=== PATIENT | female | born 1960 | race Caucasian/White ===

== ENCOUNTER 2019-10-15 14:47 | Outpatient (CLI) | payer OTHER, SELFPAY ==
--- NOTE | ~2019-10-15 | DEXA_ITS ---
Bone Density Report Name: Siria Marina Age: 58 Sex: Female Ethnicity: White Date of : 1960 Indication: postmenopausal; height loss; prior fracture; Referring Provider: BRIANNA MURGUIA Study: Bone densitometry was performed. Exam Date: October 15, 2019 Accession number: [id number] Bone Density: Region BMD T-score Z-score Classification AP Spine (L1-L4) 1.191 1.3 2.8 Normal Femoral Neck (Left) 0.820 -0.3 1.1 Normal Total Hip (Left) 1.054 0.9 1.9 Normal Total Hip Bilateral Avg 1.029 0.7 1.7 Normal Femoral Neck (Right) 0.782 -0.6 0.7 Normal Total Hip (Right) 1.004 0.5 1.5 Normal World Health Organization criteria for BMD impression classify patients as: Normal (T-score at or above -1.0), Osteopenia (T-score between -1.0 and -2.5), or Osteoporosis (T-score at or below -2.5). 10-year Fracture Risk: FRAX not reported because: All T-scores for Spine Total, Hip Total, Femoral Neck at or above -1.0 Prior hip or vertebral fracture Clinical Information Provided by Patient: Have had a previous hip or vertebral fracture Has had a low trauma fracture Patient maximum height was 64 Menopause Age: 45 Drinks caffeinated beverages Onset of menses at age 11 Number of children 0 Impression: The patient has normal bone mass. The patient has risk factors, including: previous fracture. Discussion: INCREASED RISK OF FRACTURE DUE TO HISTORY OF FRACTURE. The patient's previous fracture puts the patient at high risk of a future fracture. In untreated patients, the risk of osteoporotic fracture increases approximately two-fold for each 1.0 SD decrease in T-score. Low bone density is not the only risk factor for fracture; also consider factors such as patient's age, frailty or poor health, risk of falling, risk of injury, previous osteoporotic fracture, family history of osteoporosis, cigarette smoking, low body weight, etc. Not everyone with a low trauma fracture has osteoporosis; osteomalacia and other metabolic bone disorders should also be considered. Patients who have osteoporosis should be evaluated for specific diseases and conditions (secondary causes) that may cause or contribute to bone loss and fracture risk. National Osteoporosis Foundation (NOF) recommends pharmacologic intervention for patients with a prior hip or vertebral fracture regardless of BMD T-score. The patient should follow a healthful lifestyle (good nutrition with adequate calcium and vitamin D, and appropriate weight-bearing exercise). Follow-Up: Consider a repeat BMD and Vertebral Fracture Assessment (VFA) exam in 2 years or sooner if medically necessary, to reassess this patient's status. Reported by: DO on 10/15/2019 3:16:00 PM. Reviewed, dictated and finalized at location AGavin MARIN
== END 2019-10-15 14:48 | disposition home or self-care (01) ==
LOC: ANHIMG 14:49
PROVIDERS: PCP Family Medicine; Visit Provider Family Medicine
DX: Z13.820 Encounter for screening for osteoporosis (principal); Z78.0 Asymptomatic menopausal state
CPT/HCPCS: 77080

== ENCOUNTER 2019-11-17 11:27 | Emergency (ER) | payer OTHER, SELFPAY ==
[2019-11-17 11:33] VITALS: BP 149/97; PULSE 101; RESP 16; TEMP 36.5; O2SAT 100
--- NOTE | 2019-11-17 11:57 | ED.URI ---
HPI - URI/Sore Throat General Chief Complaint: Upper Respiratory Infection Stated Complaint: ear pain/sore throat Time Seen by Provider: 11/17/19 11:37 Source: patient and RN notes reviewed History of Present Illness HPI Narrative: Patient presents today complaining of a 2-day history of sore throat and left ear pain. Denies any additional symptoms to include fever and cough. She has an appointment set up with her PCP tomorrow, but could not wait due to pain. Currently rates her pain 08/27. She has been taking Aleve cold and sinus and ibuprofen. MD elicited complaint: sore throat Related Data Allergies Allergy/AdvReac Type Severity Reaction Status Date / Time iohexol Allergy Severe Rash Verified 09/25/19 17:32 [From CONTRAST - CT, XRAY] iodine Allergy Unknown Skin Verified 09/25/19 17:32 irritation Contrast Media Allergy Severe RASH Uncoded 09/25/19 17:32 Review of Systems Review of Systems: Narrative: CONSTITUTIONAL: Denies body aches, fever, chills, or sweats. EYES: Denies visual changes, redness, or discharge. ENT: Denies rhinorrhea, congestion. + Left ear pain, sore throat CARDIOVASCULAR: Denies chest pain, palpitations, or edema. RESPIRATORY: Denies cough or dyspnea. GASTROINTESTINAL: Denies abdominal pain, nausea, vomiting, or diarrhea. GENITOURINARY: Denies dysuria or hematuria. SKIN: Denies rash, itching, or wounds. MUSCULOSKELETAL: Denies back pain, joint pain, or myalgia. NEUROLOGIC: Denies headache, numbness, tingling, or weakness. PSYCH: Denies depression or anxiety. [facility] Past Medical History Medical History (Updated 11/17/19 @ 12:09 by Aide Camacho, [facility]) Body mass index (BMI) 40.0-44.9, adult (12/03/18) Current moderate episode of major depressive disorder without prior episode Depression Essential hypertension Gastroesophageal reflux disease without esophagitis Insomnia Mild intermittent asthma without complication Mixed hyperlipidemia Osteoarthrosis, unspecified whether generalized or localized, forearm Stress Social History Social History Smoking status: Never smoker Second hand tobacco smoke exposure: No Alcohol intake: current Comments At time of signature, I have reviewed and agree with nursing past medical, surgical, social and family history unless otherwise noted. Please see nursing chart for further information. There is no relevant family history pertinent to the presenting complaint Exam Narrative: Exam Narrative: GENERAL: Well-appearing, well-nourished, and in no acute distress. HEAD: Normocephalic, atraumatic. EYES: EOMI. No redness or drainage. Conjunctivae normal. ENT: Mucous membranes pink and moist. Nares clear. No rhinorrhea. Right-sided middle ear effusion without evidence of infection. Small amount of fluid behind the left eardrum without evidence of infection. Throat is moderately erythematous and edematous. Tonsils 3+ with white exudate. Uvula midline. NECK: Normal AROM. Supple. Bilateral anterior cervical chain lymphadenopathy. CHEST: No respiratory distress. Clear to auscultation. HEART: Regular rate and rhythm. No murmur appreciated. Normal peripheral pulses. EXTREMITIES: Normal range of motion. No edema. SKIN: Warm, dry, no rash. Capillary refill normal. Normal skin turgor. NEURO: No focal deficits. Alert and oriented x3. Gait steady. PSYCH: Normal affect. No signs of depression or anxiety. Course Vital Signs Vital signs: Vital Signs Temperature 97.7 F 11/17/19 11:33 Pulse Rate 101 H 11/17/19 11:33 Respiratory Rate 16 11/17/19 11:33 Blood Pressure 149/97 H 11/17/19 11:33 Pulse Oximetry 100 11/17/19 11:33 Temperature 97.7 F 11/17/19 11:33 Pulse Rate 101 H 11/17/19 11:33 Respiratory Rate 16 11/17/19 11:33 Blood Pressure 149/97 H 11/17/19 11:33 Pulse Oximetry 100 11/17/19 11:33 Reviewed. Pt has been instructed to follow up with her PCP regarding
== END 2019-11-17 12:17 | disposition home or self-care (01) ==
PROVIDERS: Emergency Provider Nurse Practitioner; PCP Family Medicine
DX: J02.8 Acute pharyngitis due to other specified organisms (principal); I10 Essential (primary) hypertension; K21.9 Gastro-esophageal reflux disease without esophagitis; E78.5 Hyperlipidemia, unspecified; M19.90 Unspecified osteoarthritis, unspecified site
CPT/HCPCS: 87081; 87880; 99213; G0463

== ENCOUNTER 2019-11-23 00:54 | Outpatient (CLI) | payer OTHER, SELFPAY ==
[2019-11-23 18:12] LABS: SARS-CoV-2 RNA PCR Negative
== END 2019-11-23 00:55 | disposition home or self-care (01) ==
LOC: ANHCOVIDDT 00:54
PROVIDERS: PCP Family Medicine; Visit Provider Internal Medicine Gastroenterology
DX: Z01.812 Encounter for preprocedural laboratory examination (principal); Z20.828 Contact with and (suspected) exposure to other viral communicable diseases
CPT/HCPCS: 87635; C9803; U0003

== ENCOUNTER 2019-12-26 01:32 | Outpatient (CLI) | payer OTHER, SELFPAY ==
[2019-12-26 18:04] LABS: SARS-CoV-2 RNA PCR Negative
== END 2019-12-26 01:33 | disposition home or self-care (01) ==
LOC: ANHCOVIDDT 01:32
PROVIDERS: PCP Family Medicine; Visit Provider Internal Medicine Gastroenterology
DX: Z01.812 Encounter for preprocedural laboratory examination (principal); Z20.828 Contact with and (suspected) exposure to other viral communicable diseases
CPT/HCPCS: 87635; C9803; U0003

== ENCOUNTER 2019-12-30 00:37 | Day surgery (SDC) | payer OTHER, SELFPAY ==
[2019-11-18 15:32] VITALS: BMI 43.0
[2019-12-23 14:58] VITALS: BMI 41.8
[2019-12-30 07:54] VITALS: BP 143/102; PULSE 94; RESP 19; TEMP 36.3; O2SAT 99; BMI 42.1
[2019-12-30] MEDS: LACTATED RINGERS 1,000 ML 150 ML IV CONT (08:04)
--- NOTE | 2019-12-30 08:22 | WPDGICN ---
Assessment and Plan Assessment and plan (1) ONI (iron deficiency anemia): Code(s): D50.9 - Iron deficiency anemia, unspecified Status: Acute Assessment and Plan: Patient has iron deficiency anemia. Plan is for GI endoscopy to evaluate for causes of this. She does have acid reflux and we will need to exclude esophagitis. She is chronically on proton pump inhibitors and potentially this could also contribute to iron malabsorption. Further recommendations will be given after endoscopy. Iron replacement suggested after endoscopy as well. (2) GERD (gastroesophageal reflux disease): Code(s): K21.9 - Gastro-esophageal reflux disease without esophagitis Status: Acute Assessment and Plan: Patient has chronic acid reflux for which she has on Nexium chronically. This will be assessed at time of endoscopy. (3) Encounter for screening colonoscopy: Code(s): Z12.11 - Encounter for screening for malignant neoplasm of colon Status: Acute Assessment and Plan: Patient's last colonoscopy was 10 years ago. Time for a screening colonoscopy at this time in addition to assessing for iron loss. GI Consult Note Consult date/time: 12/30/19 08:22 HPI: Siria Marina is a 59 year old female Seen in evaluation at the request of Dr. Serena mccollum. Patient was found to have iron deficiency anemia. She denies abdominal pain. Has had no obvious bleeding. Her bowel habits are normal. Her weight has remained stable. She has occasionally had heartburn in the past for which she is on Nexium for many years. Last colonoscopy was 10 years ago. Patient states she was recently treated for tonsillitis with antibiotics. Family history is noncontributory. Review of Systems Review of Systems: All systems reviewed & are unremarkable except as noted in HPI and below PMFSH Past Medical History Medical History (Updated 12/30/19 @ 08:24 by Jose Pickard MD) Body mass index (BMI) 40.0-44.9, adult (12/03/18) Current moderate episode of major depressive disorder without prior episode Depression Essential hypertension Gastroesophageal reflux disease without esophagitis Insomnia Mild intermittent asthma without complication Mixed hyperlipidemia Osteoarthrosis, unspecified whether generalized or localized, forearm Stress Family History Family History Father Hypertension Family history of cardiovascular disease Other Family history of elevated blood lipids Family history of kidney disease Social History Social History (Reviewed 11/23/19 @ 10:14 by Fouzia Mckeon [facility]) Smoking status: Never smoker Second hand tobacco smoke exposure: No Alcohol intake: never Substance use: never Substance use type: does not use Living arrangements: with family Gender identity (if verbalized by the patient): Female Sexual Orientation (if Verbalized by the Patient): Straight or Heterosexual Spiritual care concerns: No Meds Home Medications and Allergies Home Medications Medication Instructions Recorded Confirmed Type beclomethasone dipropionate 80 2 inhalation INHALATION Q12H #10.6 05/29/19 12/30/19 Rx mcg/actuation HFA breath activated gm aerosol lisinopril 40 mg tablet 40 mg PO DAILY #30 tablet 09/07/19 12/30/19 Rx hydrochlorothiazide 12.5 mg tablet 12.5 mg PO DAILY #90 tablet 10/28/19 12/30/19 Rx clonazepam 1 mg tablet 1 mg PO BID PRN #60 tablet 11/09/19 12/30/19 Rx esomeprazole magnesium [Nexium] 20 mg PO DAILY 11/18/19 12/30/19 History gabapentin 300 mg PO DAILY 12/23/19 12/30/19 History rmqjlzzy-tqr-iosi-FA-lutein 1 tablet PO DAILY 12/23/19 12/30/19 History [Centrum Silver Women] Allergies Allergy/AdvReac Type Severity Reaction Status Date / Time iohexol Allergy Severe Rash Verified 12/30/19 07:51 [From CONTRAST - CT, XRAY] iodine Allergy Unknown Skin Verified 12/30/19 07:51 irritation
--- NOTE | 2019-12-30 08:42 | WPDANESEPPF ---
Anes - Initial Pre Proc Eval Procedure: Operation Date: 12/30/19 09:00 Proposed Procedures p Esophagogastroduodenoscopy & Colonoscopy - Jose Pickard MD Date/Time: 12/30/19 08:42 Surgeon: Jose Pickard MD Pre Op Diagnosis: iron deficiency anemia, GERD Patient Data Age: 59 Gender: F Height: 5 ft 3 in Weight: 107.9 kg Last Vital Signs Temp 36.3 C L 12/30/19 07:54 Pulse 94 12/30/19 07:54 Resp 19 12/30/19 07:54 BP 143/102 H 12/30/19 07:54 Pulse Ox 99 12/30/19 07:54 Allergies Allergy/AdvReac Type Severity Reaction Status Date / Time iohexol Allergy Severe Rash Verified 12/30/19 07:51 [From CONTRAST - CT, XRAY] iodine Allergy Unknown Skin Verified 12/30/19 07:51 irritation Contrast Media Allergy Unknown RASH Uncoded 12/30/19 07:51 Home Medications Medication Instructions Recorded Confirmed Type beclomethasone dipropionate 80 2 inhalation INHALATION Q12H #10.6 05/29/19 12/30/19 Rx mcg/actuation HFA breath activated gm aerosol lisinopril 40 mg tablet 40 mg PO DAILY #30 tablet 09/07/19 12/30/19 Rx hydrochlorothiazide 12.5 mg tablet 12.5 mg PO DAILY #90 tablet 10/28/19 12/30/19 Rx clonazepam 1 mg tablet 1 mg PO BID PRN #60 tablet 11/09/19 12/30/19 Rx esomeprazole magnesium [Nexium] 20 mg PO DAILY 11/18/19 12/30/19 History gabapentin 300 mg PO DAILY 12/23/19 12/30/19 History dzbighet-fil-jqvm-FA-lutein 1 tablet PO DAILY 12/23/19 12/30/19 History [Centrum Silver Women] Patient hx anesthesia problems: none Family hx anesthesia problems: none PMFSH Past Medical History Medical History Body mass index (BMI) 40.0-44.9, adult (12/03/18) Current moderate episode of major depressive disorder without prior episode Depression Essential hypertension Gastroesophageal reflux disease without esophagitis Insomnia Mild intermittent asthma without complication Mixed hyperlipidemia Osteoarthrosis, unspecified whether generalized or localized, forearm Stress Family History Family History Father Hypertension Family history of cardiovascular disease Other Family history of elevated blood lipids Family history of kidney disease Social History Social History Smoking status: Never smoker Second hand tobacco smoke exposure: No Alcohol intake: never Substance use: never Substance use type: does not use Living arrangements: with family Gender identity (if verbalized by the patient): Female Sexual Orientation (if Verbalized by the Patient): Straight or Heterosexual Spiritual care concerns: No Anes - Eval Final PreProcedure Day of Procedure 12/30/19 08:42 Patient weight: morbidly obese Heart: regular rate and rhythm Lungs: clear to auscultation Airway: Mallampati scale class II Neurological: alert and oriented Last oral intake: >/= 8 hours ASA classification: III Emergent: no Anesthetic plan: proceed Anesthesia type and monitoring: general GIVS and standard monitoring Informed Consent: The patient's anesthetic plan and its attendant risks and benefits were discussed with the patient/family/POA. Questions were solicited and answers provided to the satisfaction of the patient/family/POA.
[2019-12-30] MEDS: BENZOCAINE (*SP) 60 ML SPRAY CAN (HURRICAINE) 1 SPRAY MUCOUS MEM (09:07)
[2019-12-30 09:30] VITALS: BP 137/84; PULSE 88; RESP 23; O2SAT 98
[2019-12-30 09:40] VITALS: BP 136/88; PULSE 78; RESP 17; O2SAT 97
[2019-12-30 09:50] VITALS: BP 136/86; PULSE 80; RESP 19; O2SAT 97
== END 2019-12-30 10:07 | disposition home or self-care (01) ==
PROVIDERS: PCP Family Medicine; Visit Provider Internal Medicine Gastroenterology
PROC: 0DJ08ZZ Inspection of Upper Intestinal Tract, Via Natural or Artificial Opening Endoscopic (ICD-10-PCS; CPT 43235; principal; 2019-12-30 09:00)
DX: Z12.11 Encounter for screening for malignant neoplasm of colon (principal); D50.9 Iron deficiency anemia, unspecified; Q39.4 Esophageal web; K21.9 Gastro-esophageal reflux disease without esophagitis; I10 Essential (primary) hypertension; J45.909 Unspecified asthma, uncomplicated; E78.5 Hyperlipidemia, unspecified; M19.90 Unspecified osteoarthritis, unspecified site; G47.00 Insomnia, unspecified; F32.9 Major depressive disorder, single episode, unspecified
CPT/HCPCS: 43450; G0105; J2001; J2704; J7120

== ENCOUNTER 2020-07-21 15:45 | Outpatient (CLI) | payer BC, SELFPAY ==
--- NOTE | ~2020-07-21 | MM_ITS ---
EXAMINATION: MM screening desiree BI w deanna HISTORY: Screening TECHNIQUE: Craniocaudal and mediolateral oblique 3-D tomosynthesis images were obtained and synthetic 2-D images were generated. CAD analysis was submitted and interpreted. COMPARISON: No prior mammogram is available for comparison at this institution. BREAST PARENCHYMAL COMPOSITION: There are scattered areas of fibroglandular density. FINDINGS: There are scattered asymmetries in the right breast. There is a benign-appearing right demetrius st mass containing dystrophic calcifications. There is a mass in the upper outer quadrant of the left breast, middle third measuring approximately 8 mm. IMPRESSION: 1. Right breast asymmetries and left breast mass. 2. Additional mammographic views and possible breast ultrasound are recommended. BI-RADS Category 0: Incomplete: Needs additional imaging evaluation. Reviewed, dictated and finalized at location A. IMPRESSION: 1. Right breast asymmetries and left breast mass. 2. Additional mammographic views and possible breast ultrasound are recommended . BI-RADS Category 0: Incomplete: Needs additional imaging evaluation.
== END 2020-07-21 15:46 | disposition home or self-care (01) ==
PROVIDERS: PCP Family Medicine; Visit Provider Family Medicine
DX: Z12.31 Encounter for screening mammogram for malignant neoplasm of breast (principal); R92.8 Other abnormal and inconclusive findings on diagnostic imaging of breast
CPT/HCPCS: 77063; 77067

== ENCOUNTER 2021-09-06 09:03 | Outpatient (CLI) | payer BC, SELFPAY ==
--- NOTE | ~2021-09-06 | MM_ITS ---
EXAMINATION: MM screening desiree BI w deanna HISTORY: Screening TECHNIQUE: Craniocaudal and mediolateral oblique 3-D tomosynthesis images were obtained and synthetic 2-D images were generated. CAD analysis was submitted and interpreted. COMPARISON: Comparison to multiple prior studies sequentially, with oldest reviewed study dated 05/2017. BREAST PARENCHYMAL COMPOSITION: Breast composed of scattered areas of fibroglandular density FINDINGS: Bilateral breast asymmetries and calcifications are not significantly changed. There is no evidence of suspicious mass, calcification, or architectural distortion to suggest malignancy in eith er breast. There has been no suspicious interval change. IMPRESSION: 1. No mammographic evidence of malignancy. 2. Recommend routine screening mammography in one year. BI-RADS Category 2: Benign finding(s). Reviewed, dictated and finalized at location L.
== END 2021-09-06 09:04 | disposition home or self-care (01) ==
LOC: ANHIMG 09:04
PROVIDERS: PCP Family Medicine; Visit Provider Physician Assistant
DX: Z12.31 Encounter for screening mammogram for malignant neoplasm of breast (principal)
CPT/HCPCS: 77063; 77067

== ENCOUNTER 2022-11-19 07:48 | Outpatient (CLI) | payer BC, SELFPAY ==
--- NOTE | ~2022-11-19 | MM_ITS ---
EXAMINATION: MM screening desiree BI w deanna HISTORY: Screening mammogram TECHNIQUE: Craniocaudal and mediolateral oblique 3-D tomosynthesis images were obtained and synthetic 2-D images were generated. CAD analysis was submitted and interpreted. COMPARISON: 09/06/2021, 07/21/2020 BREAST PARENCHYMAL COMPOSITION: There are scattered areas of fibroglandular density. FINDINGS: No suspicious mass, calcification, or architectural distortion are identified in either kelvin ast to suggest malignancy. There has been no suspicious interval change. IMPRESSION: 1. No mammographic evidence of malignancy. 2. Recommend routine screening mammography in one year. BI-RADS Category 1: Negative Reviewed, dictated and finalized at location A.
== END 2022-11-19 07:49 | disposition home or self-care (01) ==
LOC: ANHIMG 07:50
PROVIDERS: PCP Family Medicine; Visit Provider Family Medicine
DX: Z12.31 Encounter for screening mammogram for malignant neoplasm of breast (principal)
CPT/HCPCS: 77063; 77067

== ENCOUNTER 2023-11-28 10:12 | Outpatient (CLI) | payer MEDICARE, OTHER, SELFPAY ==
--- NOTE | ~2023-11-28 | MM_ITS ---
EXAMINATION: MM screening desiree BI w deanna HISTORY: Screening TECHNIQUE: Craniocaudal and mediolateral oblique 3-D tomosynthesis images were obtained and synthetic 2-D images were generated. CAD analysis was submitted and interpreted. COMPARISON: Comparison to multiple prior studies sequentially, with oldest reviewed study dated 05/2017. BREAST PARENCHYMAL COMPOSITION: Not dense: There are scattered areas of fibroglandular density. FINDINGS: There is no evidence of suspicious mass, calcification, or architectural distortion to sugg est malignancy in either breast. There has been no suspicious interval change. IMPRESSION: 1. No mammographic evidence of malignancy. 2. Recommend routine screening mammography in one year. BI-RADS Category 1: Negative Reviewed, dictated and finalized at location B.
== END 2023-11-28 10:13 | disposition home or self-care (01) ==
PROVIDERS: PCP Family Medicine; Visit Provider Family Medicine
DX: Z12.31 Encounter for screening mammogram for malignant neoplasm of breast (principal)
CPT/HCPCS: 77063; 77067

== ENCOUNTER 2024-02-07 13:33 | Outpatient (CLI) | payer MEDICARE, OTHER, SELFPAY ==
--- NOTE | ~2024-02-07 | XR_ITS ---
AP view of the pelvis and AP and lateral views of the left hip Clinical history: Pain Findings: No acute fracture or dislocation is seen. Osseous alignment is anatomic. There is moderate to advanced degenerative changes left hip joint, especially superiorly. There is mild degenerative ch julia of the right hip joint. There is degenerative spondylosis in the visualized lower lumbar spine. Soft tissues are unremarkable. Impression: Moderate to advanced degenerative change of the left hip joint. Mild right hip joint degenerative change. Degenerative spondylosis of the lower lumbar spine. Reviewed, dictated and finalized at location M. LIBRARY DIRECT[employer] Impression: Moderate to advanced degenerative change of the left hip joint. Mild right hip joint degenerative change. Degenerative spondylosis of the lower lumbar spine.
== END 2024-02-07 13:34 | disposition home or self-care (01) ==
PROVIDERS: PCP Family Medicine; Visit Provider Student in an Organized Health Care Education/Training Program
DX: M16.12 Unilateral primary osteoarthritis, left hip (principal); M16.11 Unilateral primary osteoarthritis, right hip; M47.816 Spondylosis without myelopathy or radiculopathy, lumbar region
CPT/HCPCS: 73502

== ENCOUNTER 2024-04-21 11:28 | Outpatient (CLI) | payer MEDICARE, OTHER, SELFPAY | END 2024-04-21 11:29 | disposition home or self-care (01) | LOC: ANHIMG 11:29 | PROVIDERS: PCP Family Medicine; Visit Provider Family Medicine | DX: M85.851 Other specified disorders of bone density and structure, right thigh (principal); Z78.0 Asymptomatic menopausal state | CPT/HCPCS: 77080 ==

== ENCOUNTER 2024-06-25 08:24 | Outpatient (CLI) | payer MEDICARE, OTHER, SELFPAY ==
--- NOTE | ~2024-06-25 | CT_ITS ---
Procedure: CT hip LT wo con Ordering provider: Fabio Santizo MD History: . Preoperative planning . Comparison: None. Technique: Thin slice axial CT of the No IV contrast was given. Sagittal and coronal reformatted imag es were also obtained and reviewed. Radiation reduction technique utilized.The dose-length product wa s 11/04/2023 mGy-cm. Findings: BONES: No fracture is seen. JOINT SPACES: Bilateral severe osteoarthritic changes more on the left side. Severe osteoarthritic ch anges of the right knee. Bilateral osteoarthritic changes of the patellofemoral joints. SOFT TISSUES: IMPRESSION: Bilateral hip severe osteoarthritic changes more on the left side. No acute osseous abnormality. Severe osteoarthritic changes in the right kidney. Reviewed, dictated and finalized at location A.
--- OUTSIDE RECORDS SUMMARY | 2024-06-25 08:29 | XMS_ITS | Clinical Summary ---
Author Organization [facility] Address [address] [place] [address] Care Team Providers Care Lead Java Software Engineer Name Role Phone Serena Caceres MD Primary Care Provider [phone] Source Comments [facility],non-owned Affiliates and Associated Physician Practices is amultiple site organization consisting of ambulatory clinics and hospital sitesin [place], [place], [place] and [place]. This disclosure is being madepursuant to the Care Everywhere program and may not contain all information available regarding this patient. Last updated 17.[facility] Combat Stroke Allergies Active Allergy Reactions Criticality Noted Date Comments Contrast-Iodinated Agents For Ct/Other Urticaria 05/21/2012 Medications * Be aware that medications may not be up to date on this document. Alwaysverify current medications with the patient. lisinopril (PRINIVIL; ZESTRIL) 20 MG tablet Take 20 mg by mouth once daily. Active hydrochlorothia zide (MICROZIDE) 12.5 MG capsule Take 12.5 mg by mouth once daily. Active Esomeprazole Magnesium (NEXIUM PO) Active lutein 10 MG tablet Take 10 mg by mouth once daily Active Multiple Vitamins TABS Active Madison-3 Fatty Acids (OMEGA 3 PO) Active HYDROcodone-nano taminophen (NORCO) 5-325 MG tablet TK 1 T PO Q 6 H PRN P 0 8 Active diazePAM (VALIUM) 10 MG tablet TK 1 T PO 30 MIN PRIOR TO APPOINTMENT. MAY REPEAT AT TIME OF APPOINTMENT IF NEEDED 0 8 Active cephalexin (KEFLEX) 500 MG capsule TK 4 CS PO 1 HOUR PRIOR TO PROCEDURE 0 8 Active Active Problems No known active problems Family History Medical History Relation Name Comments Heart Disease Father stent placed 2 012 Hypercholesterolemia Father Hypertension Father Heart Disease Maternal Grandmother Thyroid Disease Mother Cancer Paternal Grandmother Cervica l Hypertension Paternal Grandmother Relation Name Status Comments Father Alive Maternal Grandfather Maternal Grandmother Mother Alive Paternal Grandfather Paternal Grandmother Sister 1 Alive Sister 2 Alive Social History Tobacco Use Types Packs/Day Years Used Date Smoking Tobacco: Never Smokeless Tobacco: Never Alcohol Use Standard Drinks/Week Comments Yes 0 (1 standard drink = 0.6 oz pur e alcohol) social Comments No Sex and Gender Information Value Date Recorded Sex Assigned at Not on file 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 Gender Identity Not on file Sexual Orientation Not on file Last Filed Vital Signs Vital Sign Reading Time Taken Comments Blood Pressure 122/88 11/08/2017 1:17 PM CDT Pulse 71 05/21/2012 1:27 PM CDT Temperature - - Respiratory Rate - - Oxygen Saturation - - Inhaled Oxygen Concentration - - Weight 106.9 kg (235 lb 9.6 oz) 11/08/2017 1:17 PM CDT Height 162.6 cm (5' 4 ) 11/08/2017 1:17 PM CDT Body Mass Index 40.44 11/08/2017 1:17 PM CDT Plan of Treatment Health Maintenance Due Date Last Done Comments BONE DENSITY TESTING 1960 COLOGUARD (AGES 45-75) - COLON CA SCREENING 1958 COLON MONITORING 1958 COLONOSCOPY - COLON CA SCREENING 1958 CT COLONOGRAPHY - COLON CA SCREENING 1960 Colorectal Cancer Screening 1960 FIT - COLON CA SCREENING 1958 FLEX SIG - COLON CA SCREENING 1958 LIPID TESTING 1958 HIV SCREENING 1973 HEPATITIS C SCREENING 10/24/1976 DTAP/TDAP/TD VACCINES (1 - Tdap) 1977 PNEUMOCOCCAL VACCINE 50+ (1 of 1 - PCV) 2008 ZOSTER VACCINE (1 of 2) 2008 SCREENING FOR DIABETES 11/08/2017 PAP with HPV 11/07/2020 11/08/2015, 05/21/2012 MAMMOGRAM 12/12/2020 12/12/2018, 1005/2017, 11/21/2016, Additional history exists COVID-19 VACCINE (2023- season) 2023 DEPRESSION SCREENING 02/19/2024 INFLUENZA VACCINE (Season Ended) 2024 Respiratory Syncytial Virus (RSV) Vaccine Pt: or over 60 yrs (1 - 1-dose 75+ series) 2033 HEPATITIS B VACCINE Aged Out No longe r eligible based on patient's age to complete this topic HIB VACCINE Aged Out No longer eligi ble based on patient's age to complete this topic HPV VACCINE Aged Out No longer eligi ble based on patient's age to complete this topic MENINGOCOCCAL (Group B) VACCINE SHARED DECISION-MAKING Aged Out No longer eligible based on patient's age to complete this topic MENINGOCOCCAL GROUPS A/C/Y/W VACCINE Aged Out No longer eligible based on patient's age to complete this topic Procedures Procedure Name Priority Date/Time Associated Diagnosis Comments MAMMO BILAT SCREENING Routine 12/12/2018 1:29 PM CDT Screening for breast cancer PAP W WINSOME HPV HR+HPV 16/18 Routine 11/08/2015 1:58 PM CDT Well female exam with routine gynecological exam Special screening examination for human papillomavirus (HPV) from Last 3 Months or Most Recently Relevant to Health Maintenance Results * MAMMO SCREENING DIGITAL IMAGE BILAT G0202 (12/12/2018 1:29 PM CDT) Anatomical Region Laterality Modality Breast Bilateral Mammography 12/12/2018 1:53 PM CDT Impressions 12/12/2018 1:55 PM CDT No mammographic evidence of malignancy in either breast. ASSESSMENT: BIRADS Category 2: Benign finding(s). RECOMMENDATION: Bilateral screening mammogram in one year. Thank you for allowing us to participate in the care of your patient. [facility] Breast Care utilizes 9+ as a reminder system to notify patients of their next recommended mammogram. Reading Radiologist: Bonita Lagos MD on 12/12/2018 at 1:55 PM Narrative 12/12/2018 1:55 PM CDT EXAMINATION: Digital screening mammogram on 12/12/2018. Low-dose full-field digital breast tomosynthesis examination was performed with synthetic 2D images and 3D acquisitions. Computer assisted detection was utilized. PRIOR: Multiple prior mammograms, most recently 11/21/2017 and dating back to 11/11/2015. BREAST PARENCHYMAL DENSITY: There are scattered areas of fibroglandular density. RISK ASSESSMENT CALCULATION: Based on the information provided by your patient, her lifetime risk of breast cancer is average (<15%). Additional quantitative risk model data and patient history details have been scanned as a document/letter in Epic electronic medical record (media tab). Please note this information is only as accurate as the data entered by the patient. FINDINGS: No suspicious masses, areas of architectural distortion or microcalcifications are evident on synthetic 2D mammogram or tomosynthesis images. There has been no significant interval change since the prior examination. Masses in both breasts are unchanged. us Serena Caceres MD MAMMO ORDERABLES Final Result * PAP W WINSOME HPV HR+HPV 16/18 (PO REF LAB) (11/08/2015 1:58 PM CDT) Diagnosis [facility] INSURANCE BILL Comment: NEGATIVE FOR INTRAEPITHELIAL LESION AND MALIGNANCY. CELLULAR CHANGES ASSOCIATED WITH ATROPHY ARE PRESENT. Specimen Adequacy [facility] INSURANCE BILL Comment: Satisfactory for evaluation. Endocervical and/or squamous metaplastic cells (endocervical component) are present. Clinician Provided ICD10 [facility] INSURANCE BILL Comment: Z01.419 Z11.51 Z12.39 Performed by [facility] INSURANCE BILL Comment:Payton Cho, Cyto technologist (ASCP) Comment . [facility] INSURANCE BILL Note [facility] INSURANCE BILL Comment: The Pap smear is a screening test designed to aid in the detection of premalignant and malignant conditions of the uterine cervix. It is not a diagnostic procedure and should not be used as the sole means of detecting cervical cancer. Both false-positive and false-negative reports do occur. . [facility] CPT Code Automation [facility] INSURANCE BILL Comment: This liquid based ThinPrep(R) pap test was screened with the use of an image guided system. Human papillomavirus Other hr types Negative Negative [facility] INSURANCE BILL Human papillomavirus 16 Negative Negative [facility] INSURANCE BILL Human papillomavirus 18 Negative Negative [facility] INSURANCE BILL Comment: This test detects fourteen high-risk HPV types: HPV16, HPV18 and twelve other high-risk types (31, 33, 35, 39, 45, 51, 52, 56, 58, 59, 66, 68) without differentiation. MICROSCOPIC CYTOLOGIC EXAMINATION OF SMEAR OF SPECIMEN FROM FEMALE GENITAL TRACT PREPARED USING PAPANICOLAOU TECHNIQUE / Unknown 11/08/2015 1:58 PM CDT 11/09/2015 2:35 AM CDT Narrative [facility] INSURANCE BILL - 11/11/2015 1:12 PM CDT No. of containers..01 CYTYC Thin Prep Vial Resulting Agency Comment [facility] [place] [address] W [phone] us Jade Sprague MD LAB - PATHOLOGY/CYTOLOGY AMANDEEP MATHIAS Final Result [facility] INSURANCE BILL [address] [place] [address] from Last 3 Months or Most Recently Relevant to Health Maintenance Insurance [facility] Care Teams Lead Java Software Engineer Relationship Specialty Start Date End Date Serena Caceres MD [address] [place] [address] PCP - General Family Medicine 11/08/17
--- OUTSIDE RECORDS SUMMARY | 2024-06-25 08:29 | XMS_ITS | Data Portability ---
Author Organization [facility] Cigital [facility], [facility] Address [address] [address] Assessment Encounter Date Assessment Date Assessment LastModified by Organization Details LastModified Time 11/06/2023 11/06/2023 63 y/o F here for a group medical visit focusing on optimizing BMAC procedure for the right knee. Preprocedural screening labs were reviewed and discussed with patient, and post-procedure plan was discussed in detail. Recommend vitamin D 50,000 IU/week x12 weeks and recheck. Additionally, feel patient would benefit from attending health optimization program. She was given information regarding same. All questions answered. May follow up if she wishes to pursue health optimization. Return to clinic sooner for worsening symptoms. Greater than 20 minutes was spent with the patient in direct evaluation and subsequent care planning. Note: billing done solely on interaction of patient with JENNIE [email or web address] Not available 11/12/2023 14:54:46 Plan of Treatment Reminders Order Date Submit Date Provider Last Modified By Organization Details Last Modified Time Details Appointments None recorded. Lab None recorded. Referral None recorded. Procedures None recorded. Surgeries None recorded. Imaging XR, knee - RM 5 2023 024 [email or web address] Not available 4 16:33:28 Medication Orders hydrocodone 5 mg-acetamin ophen 325 mg tablet 2017 018 [email or web address] [facility] #[id number], [address] [facility], [place], [place], [id number], 4 11:31:24 Patient TargetsNo targets recorded. Patient Instructions Encounter Date Encounter Id Patient Instructions Last Modified By Organization Details Last Modified Time 10/08/2017 [id number] knee arthritis: care instructions Not available 10/08/2017 12:58:39 11/06/2017 [id number] knee arthritis: care instructions Not available 11/08/2017 11:25:19 After review of examination findings, we discussed further treatment options and their risks, benefits, projected outcomes, and proposed rehabilitation. These options included: continued monitoring, corticosteroid injection, viscosupplementati on, surgical referral, physical therapy, further diagnostic workup, pain management, and/or biologic treatment. Not available 11/08/2017 11:25:18 01/22/2018 [id number] knee arthritis: care instructions [email or web address] Not available 01/22/2018 15:14:55 After review of examination findings, we discussed further treatment options and their risks, benefits, projected outcomes, and proposed rehabilitation. These options included: continued monitoring, corticosteroid injection, viscosupplementati on, surgical referral, physical therapy, further diagnostic workup, pain management, and/or biologic treatment. Not available 01/27/2018 22:05:16 Reason for Referral None Reported. Results Created Date Observation Date Name Description Value Unit Range Abnormal Flag Note LastModifiedBy Organization Detail LastModifiedTime 10/09/19 24 10/10/2023 BLUET AIL FEMAL E NEW PATIE comment: See Compon ents normal Not Available [facility] - [address], [address], 10/11/2023 02:02:21 10/09/19 24 10/10/2023 ESTRA DIOL (E2) estradiol (E2) 12.7 pg/mL normal Fem rei Refer ence Range s Menst ruati ng femal es (by day in cycle relat ignacio to LH peak) Folli cular Phase (-12 to -4 days) 19.5 - 144.2 pg/mL Mid Cycle Peak (-3 to +2 days) 63.9 - 356.7 pg/mL Lutea l Phase (+4 to +12 days) 55.8 - 214.2 pg/mL Post Menop ausal (untr eated ) 11.8 - 32.2 pg/mL Not Available [facility] - [address], [address], 10/11/2023 02:02:22 10/09/19 24 10/10/2023 TESTO STERO NE, TOTAL testosterone , total 15 NG/dL 6-82 normal Fem rei Refer ence Range s Preme nopau alex 9 - 48 ng/dL Postm enopa usal <7 - 46 ng/dL Not Available [facility] - [address], [address], 10/11/2023 02:02:23 10/09/19 24 10/10/2023 FSH FSH 48.9 mIU/m L normal Fem rei Refer ence Range s Folli cular Phase 2.5 - 10.2 mIU/m L Mid Cycle Peak 3.4 - 33.4 mIU/m L Lutea l Phase 1.5 - 9.1 mIU/m L Pregn ant < 0.3 mIU/m L Post Menop ausal 23.0 - 116.3 mIU/m L Not Available [facility] - [address], [address], 10/11/2023 02:02:10/09/19 24 10/10/2023 THYRO ID PEROX IDASE ABS thyroid peroxidase abs 28 IU/mL <60 normal Not Available [facility] - [address], [address], 10/11/2023 02:02:23 10/09/19 24 10/10/2023 CBC hematocrit 45.5 % 38.0-5 1.0 normal Not Available [facility] - [address], [address], 10/11/2023 02:02:24 10/09/19 24 10/10/2023 CBC hemoglobin 14.0 g/dL 11.5-1 5.2 normal Not Available [facility] - [address], [address], 10/11/2023 02:02:10/09/19 24 10/10/2023 CBC red blood cell 4.95 M/uL 3.80-5 .50 normal Not Available [facility] - [address], [address], 10/11/2023 02:02:10/09/19 24 10/10/2023 CBC white blood cell 7.3 K/uL 3.9-11 .4 normal Not Available [facility] - [address], [address], 10/11/2023 02:02:10/09/1910/10/2023 CBC MCV 92 fL 83-103 normal Not Available [facility] - [address], [address], 10/11/2023 02:02:10/09/1910/10/2023 CBC MCHC 30.7 g/dL 29.5-3 5.5 normal Not Available [facility] - [address], [address], 10/11/2023 02:02:10/09/1910/10/2023 CBC MCH 28.2 pg 26.0-3 4.0 normal Not Available [facility] - [address], [address], 10/11/2023 02:02:24 10/09/1910/10/2023 CBC RDW 14.5 % 11.0-1 5.5 normal Not Available [facility] - [address], [address], 10/11/2023 02:02:24 10/09/1910/10/2023 CBC platelet count 311 k/uL 140-40 0 normal Not Available [facility] - [address], [address], 10/11/2023 02:02:24 10/09/19 24 10/10/2023 CBC MPV 10.9 fL 7.5-11 .6 normal The refer ence range refle cts gudino e to Sieme ns Advia 2120i instr [facility] . Not Available [facility] - [address], [address], 10/11/2023 02:02:24 10/09/19 24 10/10/2023 CMP WITH GFR glucose 95 mg/dL 65-100 normal Not Available [facility] - [address], [address], 10/11/2023 02:02:24 10/09/1910/10/2023 CMP WITH GFR BUN 13 mg/dL 6-20 normal Not Available [facility] - [address], [address], 10/11/2023 02:02:24 10/09/19 24 10/10/2023 CMP WITH GFR creatinine, serum 0.6 mg/dL 0.5-1. 0 normal Not Available [facility] - [address], [address], 10/11/2023 02:02:24 10/09/19 24 10/10/2023 CMP WITH GFR sodium 144 mmol/ L 136-14 5 normal Not Available [facility] - [address], [address], 10/11/2023 02:02:24 10/09/19 24 10/10/2023 CMP WITH GFR potassium 4.3 mmol/ L 3.5-5. 1 normal Not Available [facility] - [address], [address], 10/11/2023 02:02:24 10/09/19 24 10/10/2023 CMP WITH GFR chloride 109 mmol/ L 100-11 0 normal Not Available [facility] - [address], [address], 10/11/2023 02:02:24 10/09/19 24 10/10/2023 CMP WITH GFR CO2 27 mmol/ L 20-31 normal Not Available [facility] - [address], [address], 10/11/2023 02:02:24 10/09/19 24 10/10/2023 CMP WITH GFR calcium 9.1 mg/dL 8.3-10 .6 normal Not Available [facility] - [address], [address], 10/11/2023 02:02:24 10/09/19 24 10/10/2023 CMP WITH GFR total protein 6.9 g/dL 5.7-8. 2 normal Not Available [facility] - [address], [address], 10/11/2023 02:02:24 10/09/19 24 10/10/2023 CMP WITH GFR albumin 4.4 g/dL 3.2-4. 8 normal Not Available [facility] - [address], [address], 10/11/2023 02:02:24 10/09/19 24 10/10/2023 CMP WITH GFR bilirubin, total 0.4 mg/dL 0.2-1. 1 normal Not Available [facility] - [address], [address], 10/11/2023 02:02:24 10/09/19 24 10/10/2023 CMP WITH GFR alkaline phosphatase 75 U/L 50-130 normal Not Available [facility] [address], [address], 10/11/2023 02:02:24 10/09/19 24 10/10/2023 CMP WITH GFR ALT 26 U/L 0-48 normal Not Available [facility] - [address], [address], 10/11/2023 02:02:24 10/09/19 24 10/10/2023 CMP WITH GFR AST <8.000 U/L 0-32 normal Not Available [facility] - [address], [address], 10/11/2023 02:02:24 10/09/19 24 10/10/2023 CMP WITH GFR albumin/glob ulin ratio 1.8 0.8-2. 0 normal Not Available [facility] - [address], [address], 10/11/2023 02:02:24 10/09/19 24 10/10/2023 CMP WITH GFR BUN/creat ratio 21.7 7.3-21 .7 normal Not Available [facility] - [address], [address], 10/11/2023 02:02:24 10/09/19 24 10/10/2023 CMP WITH GFR globulin 2.5 g/dL 2.2-3. 7 normal Not Available [facility] - [address], [address], 10/11/2023 02:02:24 10/09/19 24 10/10/2023 CMP WITH GFR GFR, estimated 107 mL/mi n normal If Afric an-Am charmaine n, resul t is: >60 Calcu latio n of estim ated GFR is based on the MDRD Study predi ction equat ion F ignacio Stage s of Chron ic Kidne y Disea se * *Stag e* *GFR Level * *Desc ripti on* Stage 1 90 ml/mi n or more Healt hy Kidne ys or Kidne y damag e with cristy l or high GFR Stage 2 60 to 89 ml/mi n Kidne y damag e and mild decre ase in GFR Stage 3 30 to 59 ml/mi n Moder ate decre ase in GFR Stage 4 15 to 29 ml/mi n Sever e decre ase in GFR Stage 5 < 15 ml/mi n Kidne y failu re, or on dialy sis Not Available [facility] - [address], [address], 10/11/2023 02:02:24 10/09/19 24 10/10/2023 VITAM IN D,25- HYDRO XY vitamin D,25-oh,tota l 32 NG/mL 30-100 normal Notes : Thera py is based on the measu remen t of Total Vitam in D (25-O H). Most exper ts agree that Vitam in D defic iency shoul d be = or < 20 ng/ml . Vitam in D insuf ficie ncy is recog nized as 21 - 29 ng/ml . The prefe rred level for Vitam in D (25-O H)is recom zack d to be 30 - 100 ng/ml . Vitam in D > 150 ng/ml is consi dered poten tiall y toxic . Not Available [facility] - [address], [address], 10/11/2023 02:02:25 10/09/19 24 10/10/2023 VITAM IN B12 vitamin B12 544 pg/mL 211-91 1 normal Not Available [facility] - [address], [address], 10/11/2023 02:02:25 10/09/19 24 10/10/2023 T3, FREE T3, free 3.6 pg/mL 2.3-4. 2 normal Not Available [facility] - [address], [address], 10/11/2023 02:02:25 10/09/19 24 10/10/2023 T4, FREE T4, free 1.27 NG/dL 0.89-1 .76 normal Not Available [facility] - [address], [address], 10/11/2023 02:02:26 10/09/19 24 10/10/2023 TSH TSH 0.211 uIU/m L 0.550- 4.780 low Not Available [facility] - [address], [address], 10/11/2023 02:02:26 10/09/19 24 10/10/2023 CRP, CARDI O CRP, cardio 5.6 mg/L <3 high Ris k of Cardi ovasu lar Disea se Low Risk CRP < 1.0 mg/L Mediu m Risk CRP 1.0 - 3.0 mg/L High Risk CRP > 3.0 mg/L Not Available [facility] - [address], [address], 10/11/2023 02:02:27 10/09/19 24 10/10/2023 HEMOG LOBIN A1C hemoglobin A1C 5.8 % < 5.7 high Di agnos is Hb A1c Level Cristy l < 5.7 % Predi abete s 5.7 - 6.4 % Diabe nora = or > 6.5 % Havin g predi abete s is a Risk Facto r for getti ng type 2 diabe nora. Withi n the predi abete s range (5.7- 6.4), the highe r the HbA1c ,the great er the risk of diabe nora. HbA1c targe t for diabe tics depen d on their histo ry and healt h. Testi ng Perfo rmed At: [facility], [address], [place] [address], Labor atory Direc tor: Daniel Coker M.D Testi ng Perfo rmed At: [facility], [address], [place] [address], Labor atory Direc tor: Daniel Coker M.D Testi ng Perfo rmed At: [facility], [address], [place] [address], Labor atory Direc tor: Boni Gramajo ng Perfo rmed At: [facility], [address], [place] [address], Labor atory Direc tor: Boni Gramajo ng Perfo rmed At: [facility], [address], [place] [address], Labor atory Direc tor: Boni Grmaajo ng Perfo rmed At: [facility], [address], [place] [address], Labor atory Direc tor: Boni Gramajo ng Perfo rmed At: [facility], [address], [place] [address], Labor atory Direc tor: Boni Gramajo ng Perfo rmed At: [facility], [address], [place] [address], Labor atory Direc tor: Boni Gramajo ng Perfo rmed At: [facility], [address], [place] [address], Labor atory Direc tor: Boni Gramajo ng Perfo rmed At: [facility], [address], [place] [address], Labor atory Direc tor: Boni Gramajo ng Perfo rmed At: [facility], [address], [place] [address], Labor atory Direc tor: Boni Gramajo ng Perfo rmed At: [facility], [address], [place] [address], Labor atory Direc tor: Boni Gramajo ng Perfo rmed At: [facility], [address], [place] [address], Labor atory Direc tor: Daniel Coker M.D Testi ng Perfo rmed At: [facility], [address], [facility] [place] [address], Labor atory Direc tor: Daniel Coker M.D Not Available [facility] [place] [address] [place], [address], 10/11/2023 02:02:27 02/10/20 24 02/11/2024 VITAM IN D,25- OH,TO JACK,I A vitamin D,25-oh,tota l,ia 53 NG/mL 30-100 normal Vitam in D Statu s 25-OH Vitam in D: Defic iency : <20 ng/mL Insuf ficie ncy: 20 - 29 ng/mL Optim al: > or = 30 ng/mL For 25-OH Vitam in D testi ng on patie nts on D2-lisa pplem entat ion and patie nts for whom quant itati on of D2 and D3 fract ions is requi red, the [employer] Assur eD(TM ) 25-OH VIT D, (D2,D 3), LC/MS /MS is recom zack d: order code 91440 (ana ents >2yrs ). See Note 1 Note 1 For addit ional infor jono cantu e refer to http: //[facility] ruma mena.Daniel Ovalleia gnost ics.c om/fa q/FAQ 199 (This link is being provi ded for infor seema vivar/ lesa gomes purpo ses only. ) Not Available [facility] [address] [place], [address], 02/11/2024 06:48:57 Result Notes None recorded. Problems Name Problem SNOMED Code Status Onset Date Resolution Date Notes Provider Name and Address Organization Details Recorded Time Osteoarthriti s of knee 156176441 Active LUCINA Villanueva - [facility], [facility] 4 16:05:29 Acquired trigger finger 2413726 Active Not Available [facility] 3 03:11:53 Localized, primary osteoarthriti s 683167569 Active Jerome Sauer kristi [facility] [employer] [facility], [facility] 4 13:59:38 Knee pain Active Jerome Sauer kristi [facility] 4 13:59:38 Inflammatory disorder of extremity 654928114 Active Not Available [facility] 3 03:11:53 Problem Notes None recorded. Procedures Surgical History Date Name Laterality Status Provider Name and Address Organization Details Recorded Time 10/09/19 24 Radiographs completed Cristian Mccormick [address] [facility] [address], [place], [place], [address] [place] [address], [facility] [employer] [facility], [facility] 10/09/2023 11:53:15 10/09/19 24 Ultrasound Examination completed Cristian Jace [address] [facility] [address], [place], [place], [address] [place] [address], [facility] [employer] [facility], [facility] 10/09/2023 11:54:21 10/23/19 13 Generic Procedure completed Jdaeike Golden [facility] [employer] [facility], [facility] 10/22/2012 10:44:00 07/31/19 13 Generic Procedure completed Jade Golden [facility] [employer] [facility], [facility] 07/30/2012 15:52:05 02/18/18 99 Arthroscopic Surgery completed Jadeike Aguilar [facility] [employer] [facility], [facility] 07/30/2012 15:57:19 Imaging Results None recorded. Procedure Notes None recorded. Medical Equipment None Reported. Allergies Allergen ID Allergen Name Allergen Category Reaction Reaction Severity Criticality Documentation Date Start Date Code Code System Note Provider Name and Address Organization Details Recorded Time 3201 Iodinated contrast media (substanc e) medicatio n rash Not available Not available 07/30/2012 58733 2003 SNOMED Jade Aguilar kristi [facility] [employer] [facility], [facility] 3 15:56:28 Medications Name Sig Start Date Stop Date Status Note LastModified by Organization Details LastModified Time compounde d medicatio n apply 1-2 gms to affected area 3-4 times daily. rub in well for 1-2 mins 2012 active Not Available Not Available Not Avai lable Prescript ion - New 08/21 /2024 completed Not Available Not Available Not Available compounde d medicatio n Apply 1-2 gms to affected area 3-4times daily. Rub in well. 2012 active Script was faxed to [facility] Not Available Not Available Not Available hydrocodo ne 5 mg-acetam inophen 500 mg capsule Take 1 capsule every 4-6 hours by oral route as needed. 2012 active Not Available Not Available Not Avai lable hydrocodo ne 5 mg-acetam inophen 325 mg tablet Take 1 tablet every 6 hours by oral route as needed for 7 days. 2024 active Not Available Not Available Not Avai lable lisinopri l 20 mg tablet Take 2 tablets every day by oral route. active Not Available Not Available No t Available amlodipin e 2.5 mg tablet Take 1 tablet every day by oral route. active Not Available Not Available No t Available Nexium 20 mg capsule,d elayed release Take 1 capsule every day by oral route. active Not Available Not Available No t Available cephalexi n 500 mg capsule Take 4 capsules (total of 2g) po one hour prior to procedur e. One time dose. 2024 active DO NOT use if PCN and Cephalos porin Allergie s are indicate d. Not Available Not Available Not Available gabapenti n 300 mg capsule Take 1 capsule every day by oral route. active Not Available Not Available No t Available hydrocodo ne 5 mg-acetam inophen 500 mg tablet TAKE 1 TO 2 TABLETS BY MOUTH EVERY 4 TO 6 HOURS NEEDED FOR PAIN 10/08 completed Not Available Not Available Not Available diazepam 10 mg tablet Arrive for appointm ent 15 mins early and take 1 tablet while in clinic. Repeat dose as directed by physicia n. 2024 active Not Available Not Available Not Avai lable hydrocodo ne 5 mg-acetam inophen 300 mg tablet Take 1 tablet every 4 hours by oral route. 2012 active Not Available Not Available Not Avai lable cholecalc iferol (vitamin D3) 1,250 mcg (50,000 unit) capsule Take 1 capsule every week by oral route. 2023 active Not Available Not Available Not Avai lable Prevacid 24Hr 10/08 completed Not Available Not Available Not Available Vitals Date Recorded Body height Body mass index (BMI) Body weight Heart rate Systolic blood pressure Diastolic blood pressure Provider Name and Address Organization Details Last Updated DateTime 8 162.56 cm 40.9 kg/m2 653937. 98 g 86 /min 124 mm[Hg] 90 mm[Hg] [facility], [facility] 8 10:40:41 Date Recorded Body height Body mass index (BMI) Body weight Systolic blood pressure Diastolic blood pressure Provider Name and Address Organization Details Last Updated DateTime 11/06/2017 162.56 cm 40.9 kg/m2 152521.9 8 g 120 mm[Hg] 90 mm[Hg] [facility] 8 17:58:09 Date Recorded Body height Body mass index (BMI) Body weight Heart rate Systolic blood pressure Diastolic blood pressure Provider Name and Address Organization Details Last Updated DateTime 8 162.56 cm 40.9 kg/m2 316536. 98 g 80 /min 130 mm[Hg] 78 mm[Hg] Jerome Sauer [facility], [facility] 8 14:51:43 Date Recorded Systolic blood pressure Diastolic blood pressure Provider Name and Address Organization Details Last Updated DateTime 10/09/2023 152 mm[Hg] 84 mm[Hg] Sus[facility] 10/09/2023 11:30:24 Social History Question Answer Notes LastModified by Organizat ion Details LastModified Time Tobacco Smoking Status Never Smoker [facility] 07/30/2012 15:58:30 What Is Your Level Of Alcohol Consumption? Occasional [id number] Information not available 07/30/2012 Marital Status [email or web address] Informatio n not available 07/30/2012 What Was The Date Of Your Most Recent Tobacco Screening? 01/22/2018 Information n ot available 09/11/2018 Sex: Unknown Functional Status None recorded. Mental Status None recorded. Family History Relationship Description Onset Age of this Age Resolved Age Notes LastModified by Organization Details LastModified Time Father Coronary arterioscler osis previo usly record ed as CAD [email or web address] Not available 07/30/2013 14:02:49 Father Heart disease [email or web address] Not available 2023 12:05:53 Father Hypercholest erolemia [email or web address] Not available 2023 12:06:02 Father Hypertensive disorder [email or web address] Not available 2023 12:06:13 Mother Arthritis [email or web address] Not availab le 10/09/2023 12:05:40 Mother Hypertensive disorder [email or web address] Not available 2023 12:06:13 Medical History Condition Response HIV or AIDS N Coronary Artery Disease N Gout N Kidney Stones N Hyperthyroidism N Head Trauma/Injury N Hernia N COPD N Depression N Hypothyroidism N Lung Disease N Blood Clots N Pacemaker N Anxiety Disorder N Arthritis Y Cancer N Stroke N Leg or Foot Ulcers N Neck Injury N High Cholesterol Y Liver Disease N Rheumatoid Arthritis N Fibromyalgia N Headaches N Kidney Disease N Heart Problems N Migraines N Thyroid Problems N Anemia N Multiple Sclerosis N Ulcers N Heart Attack ([place]) N Diabetes N Bleeding Disorder N Seizures/Epilepsy N Tuberculosis N Urinary Tract Infection N Back Problems N Diverticulitis N Asthma N Lupus N Peripheral Vascular Disease N Sleep Disorder N GERD/Reflux Y Hepatitis N Aneurysm N Heart Disease N Pulmonary Embolism N Hypertension Y Osteoporosis N Gynecological HistoryNo gynecological history recorded. Obstetrics History GPAL:G 0 P 0 0 0 0 Past Encounters Encounter ID Performer Location Encounter Start Date Encounter Closed Date Diagnosis/Indication Diagnosis SNOMED-CT Code Diagnosis ICD10 Code Diagnosis Note [id number] Jarek Mckeon [facility] [address] [place] [address] 07/02/2012 14:30:43 09/17/2012 15:01:18 [id number] Jade Golden MD [facility] [address] [place] [address] 07/30/2012 14:44:14 07/30/2012 17:37:50 [id number] Jarek Mckeon [facility] [address] [place] [address] 08/06/2012 17:41:16 08/06/2012 17:41:35 [id number] Jarek Mckeon [facility] [address] [place] [address] 09/25/2012 13:34:06 09/25/2012 14:26:30 [id number] Jade Golden MD [facility] [address] [place] [address] 10/22/2012 09:20:16 10/22/2012 17:22:51 [id number] Jerome Sauer [facility] [address] [place] [address] 01/22/2013 13:39:02 01/22/2013 14:43:24 [id number] Jade Golden MD [facility] [address] [place] [address] 07/30/2013 13:39:44 08/03/2013 11:26:00 Osteoarthritis of knee [id number] Jade Golden MD [facility] [address] [facility] [place] [address] 06/26/2017 15:01:58 06/26/2017 16:35:11 Osteoarthritis of knee [id number] M17.11 RIGHT knee pain consistent with: Grade 3 lateral compartmen t, 1 medial compartmen t and moderate patellofem oral osteoarthr osis. There is mild lateral greater than medial meniscal derangemen t and medial retinacula r sprain. Malaise and fatigue [id number] R53.83 E27.1 M89.9 M94.9 Antibiotic prophylaxis indicated [id number] Z78.9 Anxiety [id number] F41.9 Derangemen t of meniscus [id number] M23.306 [id number] Jade Golden MD [facility] [address] [place] [address] 07/03/2017 08:04:03 07/03/2017 10:51:08 Osteoarthritis of knee [id number] M17.11 RIGHT knee pain consistent with: Grade 3 lateral compartmen t, 1 medial compartmen t and moderate patellofem oral osteoarthr osis. There is mild lateral greater than medial meniscal derangemen t and medial retinacula r sprain. [id number] Jade Golden MD [facility] [address] [place] [address] 10/08/2017 09:56:23 10/08/2017 11:44:59 Osteoarthritis of knee [id number] M17.11 RIGHT knee pain consistent with: Grade 3 lateral compartmen t, 1 medial compartmen t and moderate patellofem oral osteoarthr osis. There is mild lateral greater than medial meniscal derangemen t and medial retinacula r sprain. [id number] Jade Golden MD [facility] [address] [facility] [address] [place] [address] 11/06/2017 17:23:09 11/11/2017 08:58:23 Osteoarthritis of knee [id number] M17.11 RIGHT knee pain consistent with: Grade 3 lateral compartmen t, 1 medial compartmen t and moderate patellofem oral osteoarthr osis. There is mild lateral greater than medial meniscal derangemen t and medial retinacula r sprain. [id number] Jade Golden MD [facility] [address] [facility] [address] [place] [address] 01/22/2018 14:45:58 01/28/2018 08:20:07 Osteoarthritis of knee [id number] M17.11 RIGHT knee pain consistent with: Grade 3 lateral compartmen t, 1 medial compartmen t and moderate patellofem oral osteoarthr osis. There is mild lateral greater than medial meniscal derangemen t and medial retinacula r sprain. [id number] Cristian Mccormick [facility] [address] [facility] [address] [place] [address] 10/09/2023 10:59:55 10/09/2023 15:38:15 Bilateral osteoarthritis of knees [id number] 61990 M17.0 Treatment alternativ es were discussed with the patient in detail. The patient has tried several conservati ve measures including but not limited to rest, ice, and NSAIDs with no beneficial relief. Given the imaging results and the duration of the patient s symptoms, feel the patient would benefit from BMAC/fat autograft to bilateral knees.. Did discuss the role of cascade operator braces, however she would like to see if she gets relief from the injections for moving forward with bilateral knee cascade operator braces. We discussed the need for a PRP booster at [facility] the 12-week vianca. The risks and benefits of the procedure were discussed with the patient as well as functional and pain improvemen t outcomes. The procedure was discussed in detail as well as the recovery period. We also discussed obtaining labs to ensure the patient is optimized for maximal results. The patient case and treatment plan were reviewed in detail with Dr. Rodrigues. All questions answered. Return to clinic for worsening symptoms. Greater than 45 minutes was spent with the patient in direct evaluation and subsequent care planning. [id number] MARK ANTHONY CAMARGO PA-C [facility] [address] [facility] ,[address] [place] [address] 11/06/2023 13:15:52 11/06/2023 14:10:45 Bilateral osteoarthritis of knees [id number] 51656 M17.0 Vitamin D deficiency 347 66887 E55.9 R53.83 M89.9 M94.9 Recommend vitamin D 50,000 IU/week x12 weeks and recheck. Health Concerns Section Related Observation LastModified by Organization Detai ls LastModified Time None Recorded Concern Status LastModified by Organization Details LastModified Time None Recorded Advance Directives Directive None Recorded Payers Encounter Date Sequence Insurance Name Policy Number Policy Duran Covered Member ID Duran Member ID Guarantor Name 10/08/2017 1 [facility] [id number] Siria Marina [id number] Siria Marina 11/06/2017 1 [facility] [id number] Siria Marina [id number] Siria Marina 01/22/2018 1 [facility] [id number] Siria Jordyn Laina [id number] Siria Marina 10/09/2023 1 [place] [id number] Siria Marina [id number] Siria Marina 11/06/2023 1 [place] Siria Marina [id number] Siria Marina 11/06/2023 2 [employer] (MEDICARE SUPPLEMENT) Siria Marina [id number] Siria Marina Notes Date Note Type Note Provider Name and Address Organization Details Recorded Time 10/08/2017 text/html Patient reports right knee 60% imp vs pretx. Jade berry, [employer] [facility], [facility] 10/08/2017 11:41:03 11/06/2017 text/html See Dictated NoteReported bypatient.Notes:SEE DICTATED NOTES John Fieldsrocael berry, [employer] [facility], [facility] 11/08/2017 11:25:42 01/22/2018 text/html See Dictated NoteReported bypatient.Notes:SEE DICTATED NOTES John Fieldsrocael berry, [employer] [facility], [facility] 01/27/2018 22:05:38 10/09/2023 text/html 62-year-old femjordyn bowling presents today chief complaint bilateral knee pain. She has a history of bilateral knee osteoarthritis she was last treated in 2018 with BMAC into the right knee. She has had excellent results dating back to 2012 when she was receiving bilateral PRP into the knees. Since her BMAC in the right knee of 2018 she has actually done well until the past 3 months. She states over the past 3 months she has developed increased sciatica bilateral hip pain, and pain in the bilateral knees. She describes her knee pain is difficulty going side to side she describes left knee lateral base pain, and right knee medial base pain. She describes aching but denies catching or locking. She also describes stiffness that is worse in the morning when she 1st gets out of bed. She recently tried an oral prednisone taper and states that it was very helpful for her back, but provided no relief in her knee knee pain. Cristian Jace [address], [place], [address], [facility] [employer] [facility], [facility] 10/09/2023 11:55:43 11/06/2023 text/html 63 y/o F present s for group medical visit focusing on treatment optimization for upcoming biologic treatment. Patient has an upcoming BMAC treatment scheduled for bilateral knees on 11/27/2023. She presents today for lab review and to discuss post-procedural recommendations. Today she reports continued knee pain, which has been gradually worsening for 4 months. She has been treated with BMAC on the knees with Dr. Golden, most recently in 2018, and did very well. She otherwise denies acute complaints today, including no fever or recent illness, CP, SOB. MARK ANTHONY CAMARGO PA-C [address] [facility] [address], [place], [address], [facility], [facility] 11/12/2023 14:54:55 OBGyn Episode No OBEpisode recorded.
--- NOTE | 2024-06-25 08:46 | ECG_ITS ---
Test Date: 2024-06-25 08:57:21 Measurements Intervals [place] Rate: 82 P: 37 AR: 182 QRS: -41 QRSD: 96 T: 29 QT: 359 QTc: 419 Interpretive Statements SINUS RHYTHM POSSIBLE LEFT ATRIAL ENLARGEMENT [-0.1mV P WAVE IN V1/V2] MARKED LEFT AXIS DEVIATION [QRS AXIS < -30] POSSIBLE ANTERIOR MYOCARDIAL INFARCTION [30 ms Q WAVE IN V3/V4, OR R < 0.2 mV IN V4], OF INDETERMINATE AGE No previous ECG available for comparison Electronically Signed On 06-25-2024 10:11:06 CDT by Yue Segura M.D.
== END 2024-06-25 08:25 | disposition home or self-care (01) ==
PROVIDERS: PCP Family Medicine; Visit Provider Orthopaedic Surgery
DX: R94.31 Abnormal electrocardiogram [ECG] [EKG] (principal); M16.12 Unilateral primary osteoarthritis, left hip; M19.09 Primary osteoarthritis, other specified site; R01.1 Cardiac murmur, unspecified
CPT/HCPCS: 73700; 93005

== ENCOUNTER 2024-07-15 14:13 | Outpatient (CLI) | payer MEDICARE, OTHER, SELFPAY ==
--- OUTSIDE RECORDS SUMMARY | 2024-07-15 14:19 | XMS_ITS | Data Portability ---
Author Organization [facility] [employer] [facility], [facility] Address [address] [address] Assessment Encounter Date Assessment Date Assessment LastModified [...] ophen 325 mg tablet 2017 018 [email or web address] [facility] #[id number], [address] [facility], [place], [place], [id number], 4 11:31:24 Patient TargetsNo targets recorded. Patient Instructions Encounter Date Encounter Id Patient Instructions Last Modified By Organization Details Last Modified Time 10/08/2017 [id number] knee arthritis: care instructions Not available 10/08/2017 12:58:39 11/06/2017 [id number] knee arthritis: care instructions Not available 11/08/2017 11:25:19 After review of examination findings, we discussed further treatment options and their risks, benefits, projected outcomes, and proposed rehabilitation. These options included: continued monitoring, corticosteroid injection, viscosupplementati on, surgical referral, physical therapy, further diagnostic workup, pain management, and/or biologic treatment. Not available 11/08/2017 11:25:18 01/22/2018 [id number] knee arthritis: care instructions [email or web address] Not available 01/22/2018 15:14:55 After review of [...] normal Not Available [facility] [address], [address], 10/11/2023 02:02:21 10/09/19 24 10/10/2023 ESTRA DIOL [...] pg/mL Not Available [facility] [address], [address], 10/11/2023 02:02:22 10/09/19 24 10/10/2023 TESTO STERO NE, TOTAL testosterone , total 15 NG/dL 6-82 normal Fem rei Refer ence Range s Preme nopau alex 9 - 48 ng/dL Postm enopa usal <7 - 46 ng/dL Not Available [facility] - [address], [address], 10/11/2023 02:02:23 10/09/19 24 10/10/2023 FSH FSH 48.9 mIU/m L normal Fem rei Refer ence Range s Folli cular Phase 2.5 - 10.2 mIU/m L Mid Cycle Peak 3.4 - 33.4 mIU/m L Lutea l Phase 1.5 - 9.1 mIU/m L Pregn ant < 0.3 mIU/m L Post Menop ausal 23.0 - 116.3 mIU/m L Not Available [facility] - [address], [address], 10/11/2023 02:02:10/09/19 24 10/10/2023 THYRO ID PEROX IDASE ABS thyroid peroxidase abs 28 IU/mL <60 normal Not Available [facility] - [address], [address], 10/11/2023 02:02:23 10/09/19 24 10/10/2023 CBC hematocrit 45.5 % 38.0-5 1.0 normal Not Available [facility] - [address], [address], 10/11/2023 02:02:24 10/09/19 24 10/10/2023 CBC hemoglobin 14.0 g/dL 11.5-1 5.2 normal Not Available [facility] - [address], [address], 10/11/2023 02:02:10/09/19 24 10/10/2023 CBC red blood cell 4.95 M/uL 3.80-5 .50 normal Not Available [facility] - [address], [address], 10/11/2023 02:02:10/09/19 24 10/10/2023 CBC white blood cell 7.3 K/uL 3.9-11 .4 normal Not Available [facility] - [address], [address], 10/11/2023 02:02:10/09/1910/10/2023 CBC MCV 92 fL 83-103 normal Not Available [facility] - [address], [address], 10/11/2023 02:02:10/09/1910/10/2023 CBC MCHC 30.7 g/dL 29.5-3 5.5 normal Not Available [facility] - [address], [address], 10/11/2023 02:02:10/09/1910/10/2023 CBC MCH 28.2 pg 26.0-3 4.0 normal Not Available [facility] - [address], [address], 10/11/2023 02:02:24 10/09/1910/10/2023 CBC RDW 14.5 % 11.0-1 5.5 normal Not Available [facility] - [address], [address], 10/11/2023 02:02:24 10/09/1910/10/2023 CBC platelet count 311 k/uL 140-40 0 normal Not Available [facility] - [address], [address], 10/11/2023 02:02:24 10/09/19 24 10/10/2023 CBC MPV 10.9 fL 7.5-11 .6 normal The refer ence range refle cts gudino e to Sieme ns Advia 2120i instr [facility] . Not Available [facility] - [address], [address], 10/11/2023 02:02:24 10/09/19 24 10/10/2023 CMP WITH GFR glucose 95 mg/dL 65-100 normal Not Available [facility] - [address], [address], 10/11/2023 02:02:24 10/09/1910/10/2023 CMP WITH GFR BUN 13 mg/dL 6-20 normal Not Available [facility] - [address], [address], 10/11/2023 02:02:24 10/09/19 24 10/10/2023 CMP WITH GFR creatinine, serum 0.6 mg/dL 0.5-1. 0 normal Not Available [facility] - [address], [address], 10/11/2023 02:02:24 10/09/19 24 10/10/2023 CMP WITH GFR sodium 144 mmol/ L 136-14 5 normal Not Available [facility] - [address], [address], 10/11/2023 02:02:24 10/09/19 24 10/10/2023 CMP WITH GFR potassium 4.3 mmol/ L 3.5-5. 1 normal Not Available [facility] - [address], [address], 10/11/2023 02:02:24 10/09/19 24 10/10/2023 CMP WITH GFR chloride 109 mmol/ L 100-11 0 normal Not Available [facility] - [address], [address], 10/11/2023 02:02:24 10/09/19 24 10/10/2023 CMP WITH GFR CO2 27 mmol/ L 20-31 normal Not Available [facility] - [address], [address], 10/11/2023 02:02:24 10/09/19 24 10/10/2023 CMP WITH GFR calcium 9.1 mg/dL 8.3-10 .6 normal Not Available [facility] - [address], [address], 10/11/2023 02:02:24 10/09/19 24 10/10/2023 CMP WITH GFR total protein 6.9 g/dL 5.7-8. 2 normal Not Available [facility] - [address], [address], 10/11/2023 02:02:24 10/09/19 24 10/10/2023 CMP WITH GFR albumin 4.4 g/dL 3.2-4. 8 normal Not Available [facility] - [address], [address], 10/11/2023 02:02:24 10/09/19 24 10/10/2023 CMP WITH GFR bilirubin, total 0.4 mg/dL 0.2-1. 1 normal Not Available [facility] - [address], [address], 10/11/2023 02:02:24 10/09/19 24 10/10/2023 CMP WITH GFR alkaline phosphatase 75 U/L 50-130 normal Not Available [facility] [address], [address], 10/11/2023 02:02:24 10/09/19 24 10/10/2023 CMP WITH GFR ALT 26 U/L 0-48 normal Not Available [facility] - [address], [address], 10/11/2023 02:02:24 10/09/19 24 10/10/2023 CMP WITH GFR AST <8.000 U/L 0-32 normal Not Available [facility] - [address], [address], 10/11/2023 02:02:24 10/09/19 24 10/10/2023 CMP WITH GFR albumin/glob ulin ratio 1.8 0.8-2. 0 normal Not Available [facility] - [address], [address], 10/11/2023 02:02:24 10/09/19 24 10/10/2023 CMP WITH GFR BUN/creat ratio 21.7 7.3-21 .7 normal Not Available [facility] - [address], [address], 10/11/2023 02:02:24 10/09/19 24 10/10/2023 CMP WITH GFR globulin 2.5 g/dL 2.2-3. 7 normal Not Available [facility] - [address], [address], 10/11/2023 02:02:24 10/09/19 24 10/10/2023 CMP WITH [...] sis Not Available [facility] - [address], [address], 10/11/2023 02:02:24 10/09/19 24 10/10/2023 VITAM IN [...] . Not Available [facility] - [address], [address], 10/11/2023 02:02:25 10/09/19 24 10/10/2023 VITAM IN B12 vitamin B12 544 pg/mL 211-91 1 normal Not Available [facility] - [address], [address], 10/11/2023 02:02:25 10/09/19 24 10/10/2023 T3, FREE T3, free 3.6 pg/mL 2.3-4. 2 normal Not Available [facility] - [address], [address], 10/11/2023 02:02:25 10/09/19 24 10/10/2023 T4, FREE T4, free 1.27 NG/dL 0.89-1 .76 normal Not Available [facility] - [address], [address], 10/11/2023 02:02:26 10/09/19 24 10/10/2023 TSH TSH 0.211 uIU/m L 0.550- 4.780 low Not Available [facility] - [address], [address], 10/11/2023 02:02:26 10/09/19 24 10/10/2023 CRP, CARDI O CRP, cardio 5.6 mg/L <3 high Ris k of Cardi ovasu lar Disea se Low Risk CRP < 1.0 mg/L Mediu m Risk CRP 1.0 - 3.0 mg/L High Risk CRP > 3.0 mg/L Not Available [facility] - [address], [address], 10/11/2023 02:02:27 10/09/19 24 10/10/2023 HEMOG LOBIN [...] [address], [place] [address], Labor atory Direc tor: Daniel Coker M.D Testi ng Perfo rmed At: [facility], [address], [place] [address], Labor atory Direc tor: Daniel Coker M.D Testi ng Perfo rmed At: [facility], [address], [place] [address], Labor atory Direc tor: Boni Gramajo ng Perfo rmed At: [facility], [address], [place] [address], Labor atory Direc tor: Boni Gramajo ng Perfo rmed At: [facility], [address], [place] [address], Labor atory Direc tor: Boni Gramajo ng Perfo rmed At: [facility], [address], [place] [address], Labor atory Direc tor: Boni Gramajo ng Perfo rmed At: [facility], [address], [place] [address], Labor atory Direc tor: Boni Gramajo ng Perfo rmed At: [facility], [address], [place] [address], Labor atory Direc tor: Boni Gramajo ng Perfo rmed At: [facility], [address], [place] [address], Labor atory Direc tor: Boni Gramajo ng Perfo rmed At: [facility], [address], [place] [address], Labor atory Direc tor: Boni Gramajo ng Perfo rmed At: [facility], [address], [place] [address], Labor atory Direc tor: Boni Gramajo ng Perfo rmed At: [facility], [address], [place] [address], Labor atory Direc tor: Boni Gramajo ng Perfo rmed At: [facility], [address], [facility] [address], Labor atory Direc tor: Daniel Coker M.D Testi ng Perfo rmed At: [facility], [address], [place] [address], Labor atory Direc tor: Daniel Coker M.D Not Available [facility] [address] [place], [address], 10/11/2023 02:02:27 02/10/20 24 02/11/2024 VITAM IN [...] /MS is recom zack d: order code [id number] (ana ents >2yrs ). See Note 1 Note 1 For addit ional infor jono cantu e refer to http: //[facility] ruma mena.Daniel Ovalleia gnost ics.c om/fa q/FAQ 199 (This link is being provi ded for infor seema vivar/ lesa gomes purpo ses only. ) Not Available [employer] [facility] [address] [place], [address], 02/11/2024 06:48:57 Result Notes None recorded. Problems Name Problem SNOMED Code Status Onset Date Resolution Date Notes Provider Name and Address Organization Details Recorded Time Osteoarthriti s of knee 027504866 Active LUCINA Villanueva - [employer], [facility] 4 16:05:29 Acquired trigger finger 1355551 Active Not Available [facility] 3 03:11:53 Localized, primary osteoarthriti s 897144015 Active Jerome Sauer kristi [facility] [employer] [facility], [facility] 4 13:59:38 Knee pain Active Jerome Sauer kristi [facility] 4 13:59:38 Inflammatory disorder of extremity 946942221 Active Not Available [facility] 3 03:11:53 Problem Notes None recorded. Procedures Surgical History Date Name Laterality Status Provider Name and Address Organization Details Recorded Time 10/09/19 24 Radiographs completed Cristian Mccormick [address] [facility] [address], [place], [place], [address] [place] [address], [facility] [employer] [facility], [facility] 10/09/2023 11:53:15 10/09/19 24 Ultrasound Examination completed Cristian Jace [address] [facility] [address], [place], [place], [address] [place] [address], [facility] [employer] [facility], [facility] 10/09/2023 11:54:21 10/23/19 13 Generic Procedure completed Jadeike Golden [facility] [employer] [facility], [facility] 10/22/2012 10:44:00 07/31/19 13 Generic Procedure completed Jade Godlen [facility] [place] [facility], [facility] 07/30/2012 15:52:05 02/18/18 99 Arthroscopic Surgery completed Jadeike Aguilar [facility] [employer] [facility], [facility] 07/30/2012 15:57:19 Imaging Results None recorded. Procedure Notes None recorded. Medical Equipment None Reported. Allergies Allergen ID Allergen Name Allergen Category Reaction Reaction Severity Criticality Documentation Date Start Date Code Code System Note Provider Name and Address Organization Details Recorded Time 3201 Iodinated contrast media (substanc e) medicatio n rash Not available Not available 07/30/2012 17883 2003 SNOMED Jade Aguilar kristi [employer] [facility] [place] [facility], [facility] 3 15:56:28 Medications Name Sig Start Date [...] Updated DateTime 8 162.56 cm 40.9 kg/m2 540679. 98 g 86 /min 124 mm[Hg] 90 mm[Hg] Lindsay Baker [facility] 8 10:40:41 Date Recorded Systolic blood pressure Diastolic blood pressure Provider Name and Address Organization Details Last Updated DateTime 10/09/2023 152 mm[Hg] 84 mm[Hg] Susana Patelner [facility] [employer] [facility] 10/09/2023 11:30:24 Date Recorded Body height Body mass index (BMI) Body weight Systolic blood pressure Diastolic blood pressure Provider Name and Address Organization Details Last Updated DateTime 11/06/2017 162.56 cm 40.9 kg/m2 851626.9 8 g 120 mm[Hg] 90 mm[Hg] Jerome Sauer [facility] [employer] [facility] 8 17:58:09 Date Recorded Body height Body mass index (BMI) Body weight Heart rate Systolic blood pressure Diastolic blood pressure Provider Name and Address Organization Details Last Updated DateTime 8 162.56 cm 40.9 kg/m2 243822. 98 g 80 /min 130 mm[Hg] 78 mm[Hg] Jerome Sauer [facility] [place] [facility] 8 14:51:43 Social History Question Answer Notes LastModified by Contactual Details LastModified Time Tobacco Smoking Status Never Smoker Jade berry [facility] [employer] [facility] 07/30/2012 15:58:30 Marital Status [id number] Informatio n not available 07/30/2012 What Was The Date Of Your Most Recent Tobacco Screening? 01/22/2018 Information n ot available 09/11/2018 Sex: Unknown Functional Status Question Answer Note LastModified by Contactual Details LastModified Time What is your level of alcohol consumption? Occasional [email or web address] Information not available 07/30/2012 Mental Status None recorded. Family History Relationship Description Onset Age of this Age Resolved Age Notes LastModified by Organization Details LastModified Time Father Coronary arterioscler osis previo usly record ed as CAD [email or web address] Not available 07/30/2013 14:02:49 Father Heart disease [...] Hyperthyroidism N Head Trauma/Injury N Hernia N Hypothyroidism N Depression N COPD N Blood Clots N Lung Disease N Pacemaker N Anxiety Disorder N Arthritis Y Cancer N Stroke N Neck Injury N Leg or Foot Ulcers N High Cholesterol Y Liver Disease N Rheumatoid Arthritis N Headaches N Fibromyalgia N Kidney Disease N Heart Problems N Migraines N Thyroid Problems N Anemia N Multiple Sclerosis N Ulcers N Heart Attack ([place]) N Diabetes N Bleeding Disorder N Seizures/Epilepsy [...] Diagnosis Note [id number] Jarek Mckeon [facility] [address] [place] [address] 07/02/2012 14:30:43 09/17/2012 15:01:18 [id number] Jade Golden MD [facility] [address] [place] [address] 07/30/2012 14:44:14 07/30/2012 17:37:50 4588 Jarek Mckeon [facility] [address] [place] [address] 08/06/2012 17:41:16 08/06/2012 17:41:35 6648 Jarek Mckeon [facility] [address] [place] [address] 09/25/2012 13:34:06 09/25/2012 14:26:30 7809 Jade Golden MD [facility] [address] [place] [address] 10/22/2012 09:20:16 10/22/2012 17:22:51 [id number] Jerome Sauer [facility] [address] [place] [address] 01/22/2013 13:39:02 01/22/2013 14:43:24 [id number] Jade Golden MD [facility] [address] [place] [address] 07/30/2013 13:39:44 08/03/2013 11:26:00 Osteoarthritis of knee 010124092 [id number] Jade Golden MD [facility] [address] [address] [place] [address] 06/26/2017 15:01:58 06/26/2017 16:35:11 Osteoarthritis of knee 045506198 M17.11 RIGHT knee pain consistent with: Grade 3 lateral compartmen t, 1 medial compartmen t and moderate patellofem oral osteoarthr osis. There is mild lateral greater than medial meniscal derangemen t and medial retinacula r sprain. Malaise and fatigue 2717 [address] R53.83 E27.1 M89.9 M94.9 Antibiotic prophylaxis indicated 656733335 Z78.9 Anxiety 05452898 F41.9 Derangemen t of meniscus 425241754 M23.306 [id number] Jade Golden MD [facility] [address] [place] [address] 07/03/2017 08:04:03 07/03/2017 10:51:08 Osteoarthritis of knee 003707737 M17.11 RIGHT knee pain consistent with: Grade 3 lateral compartmen t, 1 medial compartmen t and moderate patellofem oral osteoarthr osis. There is mild lateral greater than medial meniscal derangemen t and medial retinacula r sprain. [id number] Jade Golden MD [facility] [address] [facility] [place] [address] 10/08/2017 09:56:23 10/08/2017 11:44:59 Osteoarthritis of knee 152760911 M17.11 RIGHT knee pain consistent with: Grade 3 lateral compartmen t, 1 medial compartmen t and moderate patellofem oral osteoarthr osis. There is mild lateral greater than medial meniscal derangemen t and medial retinacula r sprain. [id number] Jade Golden MD [facility] [address] [facility] [place] [address] 11/06/2017 17:23:09 11/11/2017 08:58:23 Osteoarthritis of knee 507378010 M17.11 RIGHT knee pain consistent with: Grade 3 lateral compartmen t, 1 medial compartmen t and moderate patellofem oral osteoarthr osis. There is mild lateral greater than medial meniscal derangemen t and medial retinacula r sprain. [id number] Jade Golden MD [facility] [address] [facility] [place] [address] 01/22/2018 14:45:58 01/28/2018 08:20:07 Osteoarthritis of knee 604842656 M17.11 RIGHT knee pain consistent with: Grade 3 lateral compartmen t, 1 medial compartmen t and moderate patellofem oral osteoarthr osis. There is mild lateral greater than medial meniscal derangemen t and medial retinacula r sprain. [id number] Cristian Mccormick [facility] [address] [place] [address] 10/09/2023 10:59:55 10/09/2023 15:38:15 Bilateral osteoarthritis of knees 7628906882 95399 M17.0 Treatment alternativ es were discussed with the patient in detail. The patient has tried several conservati ve measures including but not limited to rest, ice, and NSAIDs with no beneficial relief. Given the imaging results and the duration of the patient s symptoms, feel the patient would benefit from BMAC/fat autograft to bilateral knees.. Did discuss the role of stick welder braces, however she would like to see if she gets relief from the injections for moving forward with bilateral knee stick welder braces. We discussed the need for a PRP booster at [facility] the 12-week vianca. The risks and benefits [...] in direct evaluation and subsequent care planning. [id number] MARK ANTHONY CAMARGO PA-C [facility] [address] [facility] ,[address] [facility] [place] [address] 11/06/2023 13:15:52 11/06/2023 14:10:45 Bilateral osteoarthritis of knees [id number] 78802 M17.0 Vitamin D deficiency 347 50070 E55.9 R53.83 M89.9 M94.9 Recommend vitamin D 50,000 IU/week x12 weeks and recheck. Health Concerns Section Related Observation LastModified by Organization Detai ls LastModified Time None Recorded Concern Status LastModified by Organization Details LastModified Time None Recorded Advance Directives Directive None Recorded Payers Encounter Date Sequence Insurance Name Policy Number Policy Duran Covered Member ID Duran Member ID Guarantor Name 10/08/2017 1 [facility] [id number] Siria Marina [id number] Siria Marina 11/06/2017 1 [facility] [id number] Siria Jordyn Laina [id number] Siria Marina 01/22/2018 1 [facility] [id number] Siria Jordyn Laina [id number] Siria Morral 10/09/2023 1 [place] [id number] Siria Marina [id number] Siria Marina 11/06/2023 1 [place] Siria Marina [id number] Siria Morral 11/06/2023 2 [employer] (MEDICARE SUPPLEMENT) Siria Marina [id number] Siria Marina Notes Date Note Type Note Provider Name and Address Organization Details Recorded Time 10/08/2017 text/html Patient reports right knee 60% imp vs pretx. Jade berry, [employer] 10/08/2017 11:41:03 11/06/2017 text/html See Dictated NoteReported bypatient.Notes:SEE DICTATED NOTES John berry [employer] 11/08/2017 11:25:42 01/22/2018 text/html See Dictated NoteReported bypatient.Notes:SEE DICTATED NOTES John Soledad berry, [employer] 01/27/2018 22:05:38 10/09/2023 text/html 62-year-old femjordyn bowling [...] relief in her knee knee pain. Cristian Mccormick [address], [place], [address], [employer] 10/09/2023 11:55:43 11/06/2023 text/html 63 y/o F [...] illness, CP, SOB. MARK ANTHONY CAMARGO PA-C [address] [facility] [address], [place], [address], [facility], [facility] 11/12/2023 14:54:55 OBGyn Episode No OBEpisode recorded.
--- OUTSIDE RECORDS SUMMARY | 2024-07-15 14:19 | XMS_ITS | Clinical Summary ---
Author Organization [facility] Address [address] [place] [address] Care Team Providers Care Manager Gyn Name Role Phone Serena Caceres MD Primary Care Provider [phone] Source Comments [facility],non-owned Affiliates and Associated Physician Practices is amultiple site organization consisting of ambulatory clinics and hospital sitesin [place], [place] and [place]. This disclosure is being madepursuant to the Care Everywhere program and may not contain all information available regarding this patient. 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 [facility] Breast Care utilizes Purer Skin as a reminder system to notify patients [...] BILL Comment: Z01.419 Z11.51 Z12.39 Performed by [facility] INSURANCE BILL Comment:Payton Cho, Cyto technologist (ASCP) [...] Thin Prep Vial Resulting Agency Comment [facility] [place] [address] [facility] W [id number] us Jade Sprague MD LAB - PATHOLOGY/CYTOLOGY AMANDEEP MATHIAS Final Result [facility] INSURANCE BILL [address] [place] [address] from Last 3 Months or Most Recently Relevant to Health Maintenance Insurance [facility] Care Teams Manager Gyn Relationship Specialty Start Date End Date Serena Caceres MD [address] [place] [address] PCP - General Family Medicine 11/08/17
--- NOTE | 2024-07-15 14:44 | ECHO_ITS ---
Patient Info Name: Siria Marina Age: 63 years : 1960 Gender: Female Ht: 62 in Wt: 183 lbs BSA: 1.94 m2 HR: 80 bpm BP: 106 / 78 mmHg Technical Quality: Good Exam Date: 07/15/2024 3:01 PM Patient Status: unknown Admit Date: 07/15/2024 Exam Type: CA echo doppler color flow Complete two-dimensional, color flow and Doppler transthoracic echocardiogram is performed. Staff Referring Physician: Fabio Santizo MD Environmental Services Worker: Monica Costa Attending Provider: Serena Caceres Summary 1. Complete two-dimensional, color flow and Doppler transthoracic echocardiogram is performed. 2. Left ventricular chamber dimension is normal. 3. Left ventricular systolic function is normal, estimated at 65-70. 4. There is mild concentric increased left ventricular wall thickness. 5. The left ventricular diastolic function is grade I diastolic dysfunction. 6. E/e' 11 is mildly elevated. 7. There is severe aortic valve sclerosis. 8. There is critical aortic valve stenosis with a peak velocity of 422 cm/s, mean gradient of 51 mmHg, and aortic valve area of 0.6 cm2. 9. Mild pulmonary hypertension, estimated pulmonary arterial systolic pressure is 47 mmHg. 10. The prox ascending aorta size is moderately dilated at 4.7 cm. Left Ventricle E/e' 11 is mildly elevated. Left ventricular chamber dimension is normal. Left ventricular systolic function is normal, estimated at 65-70. There is mild concentric increased left ventricular wall thickness. The left ventricular diastolic function is grade I diastolic dysfunction. Right Ventricle Right ventricular chamber dimension is normal. Right ventricular systolic function is normal and with normal TAPSE 1.8 cm. Left Atria Left atrial chamber dimension is normal. Right Atria Right atrial chamber dimension is normal. Aortic Valve The aortic valve is trileaflet. There is severe aortic valve sclerosis. There is critical aortic valve stenosis with a peak velocity of 422 cm/s, mean gradient of 51 mmHg, and aortic valve area of 0.6 cm2. There is no aortic valve regurgitation. Pulmonic Valve There is no pulmonic regurgitation. Mitral Valve There is no mitral valve stenosis. There is no mitral valve regurgitation. Tricuspid Valve There is no tricuspid valve regurgitation. Mild pulmonary hypertension, estimated pulmonary arterial systolic pressure is 47 mmHg. Pericardium/Pleural There is no pericardial effusion. Inferior Vena Cava Normal inferior vena cava with >50% collapse upon inspiration consistent with normal right atrial pressure, 5 mmHg. Aorta The aortic root size at the sinus of Valsalva is normal. The prox ascending aorta size is moderately dilated at 4.7 cm. Left Ventricular Outflow Tract Name Value Normal LVOT 2D LVOT Diameter 1.9 cm LVOT Doppler LVOT Peak Velocity 85 cm/s LVOT Peak Gradient 3 mmHg LVOT Mean Gradient 2 mmHg LVOT VTI 21 cm LVOT VTI/AV VTI Ratio 0.2 LVOT Stroke Volume 60 ml LVOT CO 11.9 l/min LVOT CI 6.1 l/min/m2 Pulmonic Valve Name Value Normal PV Doppler PV Peak Velocity 91 cm/s PV Peak Gradient 3 mmHg Mitral Valve Name Value Normal MV Diastolic Function MV E Peak Velocity 71 cm/s MV A Peak Velocity 95 cm/s MV E/A 0.8 MV Decel Time (PW) 256 ms MV Annular TDI MV E/e' (Septal) 11.6 MV E/e' (Lateral) 11.3 MV E/e' (Average) 11.5 Tricuspid Valve Name Value Normal TV Regurgitation Doppler TR Peak Velocity 323 cm/s TR Peak Gradient 37 mmHg Estimated PAP/RSVP RA Pressure 5 mmHg <=5 PA Systolic Pressure 47 mmHg <36 RV Systolic Pressure 47 mmHg <36 TV Annular TDI TV Lateral Becky s' Velocity 12.4 cm/s >=9.5 Aorta Name Value Normal Ascending Aorta Ao Root Diameter (MM) 3.8 cm Ao Root Diam Index (MM) 1.9 cm/m2 Aortic Valve Name Value Normal AV Doppler AV Peak Velocity 422 cm/s AV Peak Gradient 71 mmHg AV Mean Gradient 51 mmHg AV VTI 101 cm AV Area (Cont Eq VTI) 0.6 cm2 >=3.0 AV Area (Cont Eq Owen) 0.6 cm2 AV DI (Owen) 0.20 AV Regurgitation 2D LVOT Area 2.9 cm2 Ventricles Name Value Normal LV Dimensions 2D/MM IVS Diastolic Thickness (2D) 1.3 cm 0.6-1.0 LVID Diastole (2D) 4.1 cm 3.8-5.2 LVIW Diastolic Thickness (2D) 1.4 cm 0.6-0.9 LVID Systole (2D) 2.6 cm 2.2-3.5 LVOT Diameter 1.9 cm LV Mass (2D Cubed) 195.14 g 67.00-162.00 LV Mass Index (2D Cubed) 101 g/m2 43-95 Relative Wall Thickness (2D) 0.67 <=0.42 LV Fractional Shortening/Ejection Fraction 2D/MM LV Fractional Shortening (2D) 35 % 27-45 LV EF (2D Teichholz) 65 % LV Diastolic Volume (4C MOD) 91 ml LV EF (4C MOD) 69 % LV Diastolic Volume (2C MOD) 69 ml LV EF (2C MOD) 72 % LV Diastolic Volume (BP MOD) 80 ml 46-106 LV Diastolic Volume Index (BP MOD) 41 ml/m2 29-61 LV Systolic Volume (BP MOD) 24 ml 14-42 LV Systolic Volume Index (BP MOD) 12 ml/m2 8-24 LV EF (BP MOD) 70 % 54-74 LV Diastolic Length (4C) 7.9 cm LV Systolic Length (4C) 6.2 cm LV Stroke Volume (4C MOD) 63 ml RV Dimensions 2D/MM RVID Diastole (2D) 4.0 cm 2.1-3.5 Atria Name Value Normal LA Dimensions LA Dimension (MM) 3.5 cm 2.7-3.8 LA Volume (4C A-L) 40 ml LA Volume (BP A-L) 38 ml RA Dimensions RA Systolic Major Eighty Four Length (4C) 4.3 cm 2.2-2.8 RA Area (4C) 11.4 cm2 <=18.0 Report Signatures
== END 2024-07-15 14:14 | disposition home or self-care (01) ==
PROVIDERS: PCP Family Medicine; Referring Provider Orthopaedic Surgery; Visit Provider Family Medicine
DX: R93.1 Abnormal findings on diagnostic imaging of heart and coronary circulation (principal); R01.1 Cardiac murmur, unspecified
CPT/HCPCS: 93306

== ENCOUNTER 2024-09-09 00:23 | Day surgery (SDC) | payer MEDICARE, OTHER, SELFPAY ==
[2024-09-08 11:25] VITALS: BMI 32.7
[2024-09-09] VITALS (9 sets, daily range): BP systolic 109–161; BP diastolic 77–106; PULSE 78–88; RESP 12–23; TEMP 36.4; O2SAT 99–100; BMI 32.7
--- OUTSIDE RECORDS SUMMARY | 2024-09-09 00:26 | XMS_ITS | Referral Summary ---
Author Organization [facility] Address [address] [place] [address] Phone Care Team Providers Care Advertising Executive Name Role Phone Miscellaneous, Not In File Primary Care Provider Unavailable Encounters Date Type Department Care Team Description 09/04/2024 Telephone [facility] Cardiology [address] [place] [address] Bubba Mercado MD 09/03/2024 Orders Only [facility] Cardiology [address] [place] [address] [place] [address] ProviderJanett MD 09/03/2024 Telephone [facility] Cardiology [address] [place] [address] [place] [address] Bubba Mercado MD 09/03/2024 1:00 PM CDT Office Visit [facility] Cardiology [address] [place] [address] [place] [address] Bubba Mercado MD Preoperative clearance (Primary Dx); Nonrheumatic aortic (valve) stenosis; Lipid screening 08/12/2024 Telephone [facility] Cardiology [address] [place] [address] [place] [address] Bubba Mercado MD 07/07/2024 Orders Only [facility] [address] [place] [address] Unknown, Notinfile from Last 3 Months Allergies Active Allergy Reactions Criticality Noted Date Comments Iodinated Contrast Media Rash Medium 09/03/2024 Medications hydroCHLOROthia zide 12.5 mg tablet Take 1 tablet (12.5 mg total) by mouth daily Active lisinopriL (PRINIVIL,ZESTR IL) 20 mg tablet Take 2 tablets (40 mg total) by mouth daily Active Zepbound 10 mg/0.5 mL pen injector 0.5 mL (10 mg total) every 7 days Active traMADoL (ULTRAM) 50 mg tablet 1 tablet (50 mg total) Active gabapentin (NEURONTIN) 300 mg capsule Take 1 capsule (300 mg total) by mouth daily Active esomeprazole DR (NexIUM) 20 mg capsule Take 1 capsule (20 mg total) by mouth daily before breakfast Active FeroSuL 325 mg (65 mg iron) tablet Take 1 tablet (325 mg total) by mouth daily Active amLODIPine (NORVASC) 2.5 mg tablet Take 1 tablet (2.5 mg total) by mouth daily Active Active Problems Problem Noted Date Diagnosed Date Nonrheumatic aortic (valve) stenosis 09/03/2024 Preoperative clearance 09/03/2024 Social History Tobacco Use Types Packs/Day Years Used Date Smoking Tobacco: Never Smokeless Tobacco: Never Tobacco Cessation:Counseling Given: Not Answered Comments Unknown Sex and Gender Information Value Date Recorded Sex Assigned at Not on file Legal Sex Female 6:57 AM CDT Gender Identity Not on file Sexual Orientation Not on file Last Filed Vital Signs Vital Sign Reading Time Taken Comments Blood Pressure 132/86 09/03/2024 12:53 PM CDT Pulse 105 09/03/2024 12:53 PM CDT Temperature - - Respiratory Rate 16 09/03/2024 12:53 PM CDT Oxygen Saturation 96% 09/03/2024 12:53 PM CDT Inhaled Oxygen Concentration - - Weight 83.5 kg (184 lb) 09/03/2024 12:53 PM CDT Height 157.5 cm (5' 2) 09/03/2024 12:53 PM CDT Body Mass Index 33.65 09/03/2024 12:53 PM CDT Plan of Treatment Not on file Procedures Procedure Name Priority Date/Time Associated Diagnosis Comments TRANSTHORACIC ECHO (TTE) LIMITED/FOLLOWUP Routine 09/03/2024 3:56 PM CDT POCT LIPID PANEL Routine 09/03/2024 12:5 1 PM CDT Lipid screening SURGICAL PATHOLOGY Routine 07/07/2024 2: 20 PM CDT ECG 12-LEAD Routine 06/25/2024 3:55 PM CDT DIGITAL MAMMOGRAPHY Routine 08/05/2012 3 :02 PM CDT from Last 3 Months or Most Recently Relevant to Health Maintenance Results * Transthoracic Echo (TTE) Limited/Followup (09/03/2024 3:56 PM CDT) Anatomical Region Laterality Modality Ultrasound Historical Provider CV ECHO PROCEDURES Final Result * (ABNORMAL) POCT lipid panel (09/03/2024 12:51 PM CDT) Cholesterol, POC 181 <200 MG/DL HDL, POC 35(A) >=40 mg/dL Triglycerides, POC 139 <=149 mg/dL LDL Cholesterol POC 118 <=129 mg/dL Chol/HDL Ratio, POC 5.2 NONE Non-HDL Cholesterol, POC 146 NONE mg/dL Cholesterol Total, POC 181 30 - 199 mg/dL Capillary blood 09/03/2024 1 2:51 PM CDT Bubba Mercado MD POINT OF CARE TEST ORDER BRYNN Final Result * Surgical pathology (07/07/2024 2:20 PM CDT) Skin, shave biopsy 07/07/2024 2:20 PM CDT 07/08/2024 9:00 AM CDT Narrative 07/09/2024 11:04 AM CDT EPIC results best viewed via link to PDF [facility] [address] [place] [address], [address], [place] [address] [email or web address] Note to Patients: This report may contain a detailed description of human tissue sent by a health care provider to the laboratory for pathologic evaluation. The content of this report is essential for diagnosis and may provide important critical findings. This information may be unfamiliar to patients to review without a medical professional present. It is advised that the patient review this report in the presence of a health care provider who can answer questions and explain the details. FINAL REPORT Patient Information: PATIENT NAME: SIRIA MARINA SEX: F : 1960 (Age: 63) Specimen Information: COLLECTED: 07/07/2024 RECEIVED: 07/08/2024 REPORTED: 07/09/2024 Submitting Physician Information: Sara Gomez, [facility], [address] [place] [address], DERMATOPATHOLOGY REPORT RESULTS DIAGNOSIS: SKIN, INFERIOR LUMBAR SPINE, SHAVE BIOPSY: SEBORRHEIC KERATOSIS, INFLAMED exr/lac By this signature, I attest that the above diagnosis is based upon my personal examination of the slides(and/or other material indicated in the diagnosis). Carolin Dominguez M.D. Report Electronically Reviewed and Signed Out By Carolin Dominguez M.D. 07/09/2024 11:04:50 CLINICAL INFORMATION NEOPLASM OF UNCERTAIN BEHAVIOR VS IRRITATED SEBORRHEIC KERATOSIS SPECIMEN DATA MICROSCOPIC DESCRIPTION: There is hyperkeratosis, papillated and reticulated epithelial hyperplasia, horn pseudocysts and an inflammatory cell infiltrate. (L82.0) GROSS DESCRIPTION: Received in a formalin-containing bottle is a superficial fragment of melo, dome-shaped and crusted skin measuring 1.3 by 0.8 by 0.4 cm. The surgical margin is inked blue. The specimen is sectioned into 4 pieces and submitted entirely in a single cassette. Due to shrinkage, measurements may be different than those at time of procedure. sxt/anc ICD-9 A; ZSD.1411 Clerical Data A; 98415 The characteristics of special, immunohistochemical, and immunofluorescence stains and in-situ hybridization tests performed by the [facility] were deemed acceptable in ongoing quality director measures and in compliance with regulations drawn from the Clinical Laboratory Improvement Act [id number] (CLIA '88). Control reactions for all stains performed were deemed adequate and appropriate by a pathologist prior to evaluation of patient tissue. Some diagnoses were rendered with the assistance of laboratory-developed tests utilizing analyte-specific reagents; the performance characteristic of these tests were determined by [facility] and are not cleared or approved by the US Food an Drug administration. Laboratory developed test may only be performed in a facility that is certified by the [facility] as a high-complexity laboratory under CLIA '88. These tests are used for clinical purposes and are not investigational. us Notinfile Unknown LAB PATHOLOGY ORDERABLES Final Result * ECG 12 lead (06/25/2024 3:55 PM CDT) Historical Provider ECG ORDERABLES Final Res ult * DIGITAL MAMMOGRAPHY (08/05/2012 3:02 PM CDT) Anatomical Region Laterality Modality Breast Mammography 08/05/2012 3:02 PM CDT Narrative 08/05/2012 7:49 PM CDT Acc#: [id number] TAMAR 0017 - Screening Mamm BI DATE OF EXAM: Aug 05 2012 3:02PM DIAGNOSIS: SCREEN MAMMOGRAPHY NEC CLINICAL HISTORY: SCREENING RESULT: \ BREAST SCREENING DIGITAL WITH CAD BILATERAL: Digital mammogram with R2/CAD analysis was performed. Compared to priors. The breasts are dense. There are no suspicious calcifications, nodules, or distortion. Bilateral nodularity of breast is stable. Biopsy clip involves the right upper outer breast. IMPRESSION: \ CATEGORY 2 - BENIGN. TECHNOLOGIST: FERNANDO HALLMAN TECHNOLOGIST MEDICAL IMAGING EQUITY MANAGER: LB3 TRANSCRIBE DATE/TIME: Aug 05 2012 7:31P RADIOLOGIST: SANTOS ELAM M.D. READ ON: Aug 05 2012 5:11P ORDERING DR: RENAN GREENBERG M.D. THIS DOCUMENT HAS BEEN ELECTRONICALLY SIGNED BY: SANTOS ELAM M.D. ON: Aug 05 2012 7:49P EQUITY MANAGER: LB3 TRANSCRIBE DATE/TIME: Aug 05 2012 7:31P RADIOLOGIST: SANTOS ELAM M.D. READ ON: Aug 05 2012 5:11P ORDERING DR: RENAN GREENBERG M.D. THIS DOCUMENT HAS BEEN ELECTRONICALLY SIGNED BY: SANTOS ELAM M.D. ON: Aug 05 2012 7:49P Procedure Note Provider, MD Janett - 04/21/2017 Acc#: [id number] TAMAR 0017 - Screening Mamm BI DATE OF EXAM: Aug 05 2012 3:02PM DIAGNOSIS: SCREEN MAMMOGRAPHY NEC CLINICAL HISTORY: SCREENING RESULT: \ BREAST SCREENING DIGITAL WITH CAD BILATERAL: Digital mammogram with R2/CAD analysis was performed. Compared to priors. The breasts are dense. There are no suspicious calcifications, nodules, or distortion. Bilateral nodularity of breast is stable. Biopsy clip involves the right upper outer breast. IMPRESSION: \ CATEGORY 2 - BENIGN. TECHNOLOGIST: FERNANDO HALLMAN TECHNOLOGIST MEDICAL IMAGING EQUITY MANAGER: LB3 TRANSCRIBE DATE/TIME: Aug 05 2012 7:31P RADIOLOGIST: SANTOS ELAM M.D. READ ON: Aug 05 2012 5:11P ORDERING DR: RENAN GREENBERG M.D. THIS DOCUMENT HAS BEEN ELECTRONICALLY SIGNED BY: SANTOS ELAM M.D. ON: Aug 05 2012 7:49P EQUITY MANAGER: LB3 TRANSCRIBE DATE/TIME: Aug 05 2012 7:31P RADIOLOGIST: SANTOS ELAM M.D. READ ON: Aug 05 2012 5:11P ORDERING DR: RENAN GREENBERG M.D. THIS DOCUMENT HAS BEEN ELECTRONICALLY SIGNED BY: SANTOS ELAM M.D. ON: Aug 05 2012 7:49P Historical Provider MD CHIN MAMMO PROCEDURES Kristine l Result from Last 3 Months or Most Recently Relevant to [place] [address] MEDICARE [facility] MEDICARE [facility] LUX Care Teams Advertising Executive Relationship Specialty Start Date End Date Miscellaneous, Not In File PCP - General 06/14/23
--- OUTSIDE RECORDS SUMMARY | 2024-09-09 00:26 | XMS_ITS | Clinical Summary ---
Author Organization [facility] Address [address] [place] [address] Phone Care Team Providers Care Government Affairs Manager Name Role Phone Miscellaneous, Not In File Primary Care Provider Unavailable Allergies Active Allergy Reactions Criticality Noted Date Comments Iodinated Contrast Media Rash Medium 09/03/2024 Medications hydroCHLOROthia zide 12.5 mg tablet Take 1 tablet (12.5 mg total) by mouth daily 5 Active lisinopriL (PRINIVIL,ZESTR [place]) 20 mg tablet Take 2 tablets (40 mg total) by mouth daily Active Zepbound 10 mg/0.5 mL pen injector 0.5 mL (10 mg total) every 7 days 5 Active traMADoL (ULTRAM) 50 mg tablet 1 tablet (50 mg total) 5 Active gabapentin (NEURONTIN) 300 mg capsule Take 1 capsule (300 mg total) by mouth daily Active esomeprazole DR (NexIUM) 20 mg capsule Take 1 capsule (20 mg total) by mouth daily before breakfast Active FeroSuL 325 mg (65 mg iron) tablet Take 1 tablet (325 mg total) by mouth daily 5 Active amLODIPine (NORVASC) 2.5 mg tablet Take 1 tablet (2.5 mg total) by mouth daily Active Active Problems Problem Noted Date Diagnosed Date Nonrheumatic aortic (valve) stenosis 09/03/2024 Preoperative clearance 09/03/2024 Encounters Date Type Department Care Team Description 09/04/2024 Telephone [facility] Cardiology [address] [place] [address] Bubba Mercado MD 09/03/2024 1:00 PM CDT Office Visit [facility] Cardiology [address] [place] [address] [place] [address] Bubba Mercado MD Preoperative clearance (Primary Dx); Nonrheumatic aortic (valve) stenosis; Lipid screening 09/03/2024 Orders Only [facility] Cardiology [address] [place] [address] ProviderJanett MD 09/03/[address] [address] Bubba Mercado MD 08/12/[address] [address] Bubba Mercado MD 07/07/2024 Orders Only [address] [address] Unknown, Notinfile from Last 3 Months Social History Tobacco Use Types Packs/Day Years Used Date Smoking Tobacco: Never Smokeless Tobacco: Never Tobacco Cessation:Counseling Given: Not Answered Comments Unknown Sex and Gender Information Value Date Recorded Sex Assigned at Not on file Legal Sex Female 6:57 AM CDT Gender Identity Not on file Sexual Orientation Not on file Obstetrics History Last Filed Vital Signs Vital Sign Reading [...] 09/03/2024 12:53 PM CDT Plan of Treatment Health Maintenance Due Date Last Done Comments Cervical Cancer Screening 1960 Colon Cancer Screening-Colonoscopy 1960 Depression Screening 1960 Fall Risk Assessment 1960 Hepatitis C Screening 1960 Osteoporosis Screening-Bone Density Scan 1960 DTaP/Tdap/Td Vaccine (1 - Tdap) 1969 Hepatitis B Screening 1976 Pneumococcal vaccine 65+ (1 of 1 - PCV) 2008 Zoster Vaccine (1 of 2) 2008 Breast Cancer Screening-Mammogram 12/13/2019 12/12/2018, 11/21/2016, 11/11/2015, Additional history exists Well Visit 65+ 10/30/2023 Influenza Vaccine (#1) 2024 Procedures Procedure Name Priority Date/Time Associated Diagnosis [...] results best viewed via link to PDF [facility], [address], [place] [address] [email or web address] Note to Patients: This report may [...] 07/08/2024 REPORTED: 07/09/2024 Submitting Physician Information: Sara Gomez [facility], [address] [address], DERMATOPATHOLOGY REPORT RESULTS DIAGNOSIS: SKIN, INFERIOR LUMBAR [...] sxt/anc ICD-9 A; ZSD.1411 Clerical Data A; 11441 The characteristics of special, immunohistochemical, and immunofluorescence stains and in-situ hybridization tests performed by the [facility] were deemed acceptable in ongoing research quality assurance analyst measures and in compliance with regulations drawn from the Clinical Laboratory Improvement Act [id number] (CLIA '88). Control reactions for all stains performed were deemed adequate and appropriate by a pathologist prior to evaluation of patient tissue. Some diagnoses were rendered with the assistance of laboratory-developed tests utilizing analyte-specific reagents; the performance characteristic of these tests were determined by [facility] and are not cleared or approved by the US Food an Drug administration. Laboratory developed test may only be performed in a facility that is certified by the [facility] as a high-complexity laboratory under [...] CDT Narrative 08/05/2012 7:49 PM CDT Acc#: [id number] TAMAR 0017 - Screening Mamm BI DATE [...] \ CATEGORY 2 - BENIGN. TECHNOLOGIST: FERNANDO HALLMAN, TECHNOLOGIST MEDICAL IMAGING DOUBLE NEEDLE OPERATOR LOCKSTITCH: LB3 TRANSCRIBE DATE/TIME: Aug 05 2012 7:31P RADIOLOGIST: SANTOS ELAM M.D. READ ON: Aug 05 2012 5:11P ORDERING DR: RENAN GREENBERG M.D. THIS DOCUMENT HAS BEEN ELECTRONICALLY SIGNED BY: SANTOS ELAM M.D. ON: Aug 05 2012 7:49P DOUBLE NEEDLE OPERATOR LOCKSTITCH: LB3 TRANSCRIBE DATE/TIME: Aug 05 2012 7:31P RADIOLOGIST: SANTOS ELAM M.D. READ ON: Aug 05 2012 5:11P ORDERING DR: RENAN GREENBERG M.D. THIS DOCUMENT HAS BEEN ELECTRONICALLY SIGNED BY: SANTOS ELAM M.D. ON: Aug 05 2012 7:49P Procedure Note Provider, Janett, - 06/08/2016 Acc#: [id number] TAMAR 0017 - Screening Mamm BI DATE [...] BENIGN. TECHNOLOGIST: FERNANDO HALLMAN TECHNOLOGIST MEDICAL IMAGING DOUBLE NEEDLE OPERATOR LOCKSTITCH: LB3 TRANSCRIBE DATE/TIME: Aug 05 2012 7:31P RADIOLOGIST: SANTOS ELAM M.D. READ ON: Aug 05 2012 5:11P ORDERING DR: RENAN GREENBERG M.D. THIS DOCUMENT HAS BEEN ELECTRONICALLY SIGNED BY: SANTOS ELAM M.D. ON: Aug 05 2012 7:49P DOUBLE NEEDLE OPERATOR LOCKSTITCH: LB3 TRANSCRIBE DATE/TIME: Aug 05 2012 7:31P RADIOLOGIST: SANTOS ELAM M.D. READ ON: Aug 05 2012 5:11P ORDERING DR: RENAN GREENBERG M.D. THIS DOCUMENT HAS BEEN ELECTRONICALLY SIGNED BY: SANTOS ELAM M.D. ON: Aug 05 2012 7:49P us Historical Provider MD CHIN MAMMO PROCEDURES Kristine l Result from Last 3 Months or Most Recently Relevant to Health Maintenance Insurance MEDICARE [facility] MEDICARE [facility] Care Teams Government Affairs Manager Relationship Specialty Start Date End Date Miscellaneous, Not In File PCP - General 06/14/23
--- OUTSIDE RECORDS SUMMARY | 2024-09-09 00:26 | XMS_ITS | Clinical Summary ---
Author Organization [facility] Address [address] [place] [address] Care Team Providers Care Set Illustrator Name Role Phone Serena Caceres MD Primary Care Provider [phone] Source Comments [facility],non-owned Affiliates and Associated Physician Practices is amultiple site organization consisting of ambulatory clinics and hospital sitesin [place], [place], [place] and [place]. This disclosure is being madepursuant to the Care Everywhere program and may not contain all information available regarding this patient. Last updated 17.[facility] [employer] Allergies Active Allergy Reactions Criticality Noted Date [...] once daily Active Multiple Vitamins TABS Active [place]-3 Fatty Acids (OMEGA 3 PO) Active HYDROcodone-nano [...] on file Legal Sex Female 5:54 AM DRILLING ENGINEER Gender Identity Not on file Sexual Orientation [...] season) 2023 DEPRESSION SCREENING 02/19/2024 INFLUENZA VACCINE (#1) 2024 Respiratory Syncytial Virus (RSV) Vaccine Pt: [...] participate in the care of your patient. [facility] utilizes [employer] as a reminder system to notify patients [...] BILL Comment: Z01.419 Z11.51 Z12.39 Performed by [facility] INSURANCE BILL Comment:Payton Cho, Cyto technologist (ASCP) [...] Thin Prep Vial Resulting Agency Comment [facility] [address] [facility] W [phone] us Jade Sprague MD LAB - PATHOLOGY/CYTOLOGY AMANDEEP MATHIAS Final Result [facility] INSURANCE BILL [id number] [place] [id number] from Last 3 Months or Most Recently Relevant to Health Maintenance Insurance [facility] Care Teams Set Illustrator Relationship Specialty Start Date End Date Serena Caceres MD [address] [place] [address] PCP - General Family Medicine 11/08/17
--- OUTSIDE RECORDS SUMMARY | 2024-09-09 00:26 | XMS_ITS | Data Portability ---
Author Organization [facility], [facility] Address [address] [address] Assessment Encounter Date Assessment Date Assessment LastModified [...] ophen 325 mg tablet 2017 018 [email or web address] [id number], [address] [facility], [place], [place], [id number], 4 11:31:24 Patient TargetsNo targets recorded. Patient Instructions Encounter Date Encounter Id Patient Instructions Last Modified By Organization Details Last Modified Time 10/08/2017 [id number] knee arthritis: care instructions Not available 10/08/2017 12:58:39 11/06/2017 [id number] knee arthritis: care instructions Not available 11/08/2017 11:25:19 After review of examination findings, we discussed further treatment options and their risks, benefits, projected outcomes, and proposed rehabilitation. These options included: continued monitoring, corticosteroid injection, viscosupplementati on, surgical referral, physical therapy, further diagnostic workup, pain management, and/or biologic treatment. Not available 11/08/2017 11:25:18 01/22/2018 [id number] knee arthritis: care instructions [email or web address] Not available 01/22/2018 15:14:55 After review of [...] normal Not Available [facility] - [address], [address], 10/11/2023 02:02:21 10/09/19 24 10/10/2023 ESTRA DIOL [...] pg/mL Not Available [facility] - [address], [address], 10/11/2023 02:02:22 10/09/19 24 10/10/2023 TESTO STERO NE, TOTAL testosterone , total 15 NG/dL 6-82 normal Fem rei Refer ence Range s Preme nopau alex 9 - 48 ng/dL Postm enopa usal <7 - 46 ng/dL Not Available [facility] - [address], [address], 10/11/2023 02:02:23 10/09/19 24 10/10/2023 FSH FSH 48.9 mIU/m L normal Fem rei Refer ence Range s Folli cular Phase 2.5 - 10.2 mIU/m L Mid Cycle Peak 3.4 - 33.4 mIU/m L Lutea l Phase 1.5 - 9.1 mIU/m L Pregn ant < 0.3 mIU/m L Post Menop ausal 23.0 - 116.3 mIU/m L Not Available [facility] - [address], [address], 10/11/2023 02:02:23 10/09/19 24 10/10/2023 THYRO ID PEROX IDASE ABS thyroid peroxidase abs 28 IU/mL <60 normal Not Available [facility] - [address], [address], 10/11/2023 02:02:23 10/09/19 24 10/10/2023 CBC hematocrit 45.5 % 38.0-5 1.0 normal Not Available [facility] - [address], [address], 10/11/2023 02:02:24 10/09/19 24 10/10/2023 CBC hemoglobin 14.0 g/dL 11.5-1 5.2 normal Not Available [facility] - [address], [address], 10/11/2023 02:02:24 10/09/19 24 10/10/2023 CBC red blood cell 4.95 M/uL 3.80-5 .50 normal Not Available [facility] - [address], [address], 10/11/2023 02:02:24 10/09/1910/10/2023 CBC white blood cell 7.3 K/uL 3.9-11 .4 normal Not Available [facility] - [address], [address], 10/11/2023 02:02:10/09/1910/10/2023 CBC MCV 92 fL 83-103 normal Not Available [facility] - [address], [address], 10/11/2023 02:02:24 10/09/19 24 10/10/2023 CBC MCHC 30.7 g/dL 29.5-3 5.5 normal Not Available [facility] - [address], [address], 10/11/2023 02:02:24 10/09/19 24 10/10/2023 CBC MCH 28.2 pg 26.0-3 4.0 normal Not Available [facility] - [address], [address], 10/11/2023 02:02:24 10/09/1910/10/2023 CBC RDW 14.5 % 11.0-1 5.5 normal Not Available [facility] - [address], [address], 10/11/2023 02:02:24 10/09/1910/10/2023 CBC platelet count 311 k/uL 140-40 0 normal Not Available [facility] - [address], [address], 10/11/2023 02:02:24 10/09/19 24 10/10/2023 CBC MPV 10.9 fL 7.5-11 .6 normal The refer ence range refle cts gudino e to Sieme ns Advia 2120i instr ument ation . Not Available [facility] - [address], [address], 10/11/2023 02:02:24 10/09/19 24 10/10/2023 CMP WITH GFR glucose 95 mg/dL 65-100 normal Not Available [facility] - [address], [address], 10/11/2023 02:02:24 10/09/19 24 10/10/2023 CMP WITH GFR BUN 13 mg/dL 6-20 normal Not Available [facility] - [address], [address], 10/11/2023 02:02:24 10/09/19 24 10/10/2023 CMP WITH GFR creatinine, serum 0.6 mg/dL 0.5-1. 0 normal Not Available [facility] - [address], [address], 10/11/2023 02:02:24 10/09/19 24 10/10/2023 CMP WITH GFR sodium 144 mmol/ L 136-14 5 normal Not Available [facility] - [address], [address], 10/11/2023 02:02:24 10/09/19 24 10/10/2023 CMP WITH GFR potassium 4.3 mmol/ L 3.5-5. 1 normal Not Available [facility] - [address], [address], 10/11/2023 02:02:24 10/09/19 24 10/10/2023 CMP WITH GFR chloride 109 mmol/ L 100-11 0 normal Not Available [facility] - [address], [address], 10/11/2023 02:02:24 10/09/19 24 10/10/2023 CMP WITH GFR CO2 27 mmol/ L 20-31 normal Not Available [facility] - [address], [address], 10/11/2023 02:02:24 10/09/19 24 10/10/2023 CMP WITH GFR calcium 9.1 mg/dL 8.3-10 .6 normal Not Available [facility] - [address], [address], 10/11/2023 02:02:24 10/09/19 24 10/10/2023 CMP WITH GFR total protein 6.9 g/dL 5.7-8. 2 normal Not Available [facility] - [address], [address], 10/11/2023 02:02:24 10/09/19 24 10/10/2023 CMP WITH GFR albumin 4.4 g/dL 3.2-4. 8 normal Not Available [facility] - [address], [address], 10/11/2023 02:02:24 10/09/19 24 10/10/2023 CMP WITH GFR bilirubin, total 0.4 mg/dL 0.2-1. 1 normal Not Available [facility] - [address], [address], 10/11/2023 02:02:24 10/09/19 24 10/10/2023 CMP WITH GFR alkaline phosphatase 75 U/L 50-130 normal Not Available [facility] - [address], [address], 10/11/2023 02:02:24 10/09/19 24 10/10/2023 CMP WITH GFR ALT 26 U/L 0-48 normal Not Available [facility] - [address], [address], 10/11/2023 02:02:24 10/09/19 24 10/10/2023 CMP WITH GFR AST <8.000 U/L 0-32 normal Not Available [facility] - [address], [address], 10/11/2023 02:02:24 10/09/19 24 10/10/2023 CMP WITH GFR albumin/glob ulin ratio 1.8 0.8-2. 0 normal Not Available [facility] - [address], [address], 10/11/2023 02:02:24 10/09/19 24 10/10/2023 CMP WITH GFR BUN/creat ratio 21.7 7.3-21 .7 normal Not Available [facility] - [address], [address], 10/11/2023 02:02:24 10/09/19 24 10/10/2023 CMP WITH GFR globulin 2.5 g/dL 2.2-3. 7 normal Not Available [facility] - [address], [address], 10/11/2023 02:02:24 10/09/19 24 10/10/2023 CMP WITH [...] sis Not Available [facility] - [address], [address], 10/11/2023 02:02:24 10/09/19 24 10/10/2023 VITAM IN [...] . Not Available [facility] - [address], [address], 10/11/2023 02:02:25 10/09/19 24 10/10/2023 VITAM IN B12 vitamin B12 544 pg/mL 211-91 1 normal Not Available [facility] - [address], [address], 10/11/2023 02:02:25 10/09/19 24 10/10/2023 T3, FREE T3, free 3.6 pg/mL 2.3-4. 2 normal Not Available [facility] - [address], [address], 10/11/2023 02:02:25 10/09/19 24 10/10/2023 T4, FREE T4, free 1.27 NG/dL 0.89-1 .76 normal Not Available [facility] - [address], [address], 10/11/2023 02:02:26 10/09/19 24 10/10/2023 TSH TSH 0.211 uIU/m L 0.550- 4.780 low Not Available [facility] [place] [address] [place] [address], [address], 10/11/2023 02:02:26 10/09/19 24 10/10/2023 CRP, CARDI O CRP, cardio 5.6 mg/L <3 high Ris k of Cardi ovasu lar Disea se Low Risk CRP < 1.0 mg/L Mediu m Risk CRP 1.0 - 3.0 mg/L High Risk CRP > 3.0 mg/L Not Available [facility] - [address], [address], 10/11/2023 02:02:27 10/09/19 24 10/10/2023 HEMOG LOBIN [...] [address], [place] [address], Labor atory Direc tor: Daniel Coker M.D Testi ng Perfo rmed At: [facility], [address], [place] [address], Labor atory Direc tor: Daniel Coker M.D Testi ng Perfo rmed At: [facility], [address], [place] [address], Labor atory Direc tor: Boni Gramajo ng Perfo rmed At: [facility], [address], [place] [address], Labor atory Direc tor: Boni Gramajo ng Perfo rmed At: [facility], [address], [place] [address], Labor atory Direc tor: Boni Gramajo ng Perfo rmed At: [facility], [address], [place] [address], Labor atory Direc tor: Boni Gramajo ng Perfo rmed At: [facility], [address], [place] [address], Labor atory Direc tor: Boni Gramajo ng Perfo rmed At: [facility], [address], [place] [address], Labor atory Direc tor: Boni Gramajo ng Perfo rmed At: [facility], [address], [place] [address], Labor atory Direc tor: Boni Gramajo ng Perfo rmed At: [facility], [address], [place] [address], Labor atory Direc tor: Boni Gramajo ng Perfo rmed At: [facility], [address], [place] [address], Labor atory Direc tor: Boni Gramajo ng Perfo rmed At: [facility], [address], [place] [address], Labor atory Direc tor: Boni Gramajo ng Perfo rmed At: [facility], [address], [place] [address], Labor atory Direc tor: Daniel Coker M.D Testi ng Perfo rmed At: [facility], [address], [place] [address], Labor atory Direc tor: Daniel Coker M.D Not Available [facility] [place] [address], [address], 10/11/2023 02:02:27 02/10/20 24 02/11/2024 VITAM IN [...] /MS is recom zack d: order code 30035 (ana ents >2yrs ). See Note 1 Note 1 For addit ional infor jono cantu e refer to http: //[facility] ruma mena.Que stDia gnost ics.c om/fa q/FAQ 199 (This link is being provi ded for infor seema vivar/ educjordyn gomes purpo ses only. ) Not Available [facility] [address] [place], [address], 02/11/2024 06:48:57 Result Notes None recorded. Problems Name Problem SNOMED Code Status Onset Date Resolution Date Notes Provider Name and Address Organization Details Recorded Time Osteoarthriti s of knee 910883048 Active LUCINA Villanueva - [facility], [facility] 4 16:05:29 Acquired trigger finger 2602352 Active Not Available [facility], [facility] 3 03:11:53 Localized, primary osteoarthriti s 231675473 Active Jerome Cristiane berry [employer] [facility], [facility] 4 13:59:38 Knee pain Active Jerome Sauer kristi [employer] [facility], [facility] 4 13:59:38 Inflammatory disorder of extremity 213892792 Active Not Available [facility], [facility] 3 03:11:53 Problem Notes None recorded. Procedures Surgical History Date Name Laterality Status Provider Name and Address Organization Details Recorded Time 10/09/19 24 Radiographs completed Cristianelaine Mccormick [address] [facility] [address], [place], [place], [address] [place] [address], [facility] [employer] [facility], [facility] 10/09/2023 11:53:15 10/09/19 24 Ultrasound Examination completed Cristian Mccormick [address] [address] [facility] [address], [place], [place], [address] [place] [address], [employer] [facility], [facility] 10/09/2023 11:54:21 10/23/19 13 Generic Procedure completed Jadeike Golden [facility] [employer] [facility], [facility] 10/22/2012 10:44:00 07/31/19 13 Generic Procedure completed Jade Golden [facility] [employer] [facility], [facility] 07/30/2012 15:52:05 02/18/18 99 Arthroscopic Surgery completed Jadeike Aguilar [facility] [employer] [facility], [facility] 07/30/2012 15:57:19 Imaging Results None recorded. Procedure Notes None recorded. Medical Equipment None Reported. Allergies Allergen ID Allergen Name Allergen Category Reaction Reaction Severity Criticality Documentation Date Start Date Code Code System Note Provider Name and Address Organization Details Recorded Time 3201 Iodinated contrast media (substanc e) medicatio n rash Not available Not available 07/30/2012 75007 2003 SNOMED Jade Aguilar kristi [employer] [facility] [employer] [facility], [facility] 3 15:56:28 Medications Name Sig Start Date Stop Date Status Note LastModified by Organization Details LastModified Time compounde d medicatio n apply 1-2 gms to affected area 3-4 times daily. rub in well for 1-2 mins 2012 active Not Available Not Available Not Avai lable Prescript ion - New 10/08 completed Not Available Not Available Not [...] index (BMI) Body weight Heart rate Systolic And Diastolic Provider Name and Address Organization Details Last Updated DateTime 10/08/2017 162.56 cm 40.9 kg/m2 878124.9 8 g 86 /min 124/90 mm[Hg] [facility] 10/08/2017 10:40:41 Date Recorded Systolic And Diastolic Provider Name and Address Organization Details Last Updated DateTime 10/09/2023 152/84 mm[Hg] Susana Patelner [facility] 10/09/2023 11:30:24 Date Recorded Body height Body mass index (BMI) Body weight Systolic And Diastolic Provider Name and Address Organization Details Last Updated DateTime 11/06/2017 162.56 cm 40.9 kg/m2 787392.98 g 120/90 mm[Hg] Jerome Sauer [facility] 11/06/2017 17:58:09 Date Recorded Body height Body mass index (BMI) Body weight Heart rate Systolic And Diastolic Provider Name and Address Organization Details Last Updated DateTime 01/22/2018 162.56 cm 40.9 kg/m2 517712.9 8 g 80 /min 130/78 mm[Hg] Jerome Sauer [facility] 01/22/2018 14:51:43 Social History Question Answer Notes LastModified by Organizat [employer] Details LastModified Time Tobacco Smoking Status Never [facility] 07/30/2012 15:58:30 Marital Status [email or web address] Informatio n not available 07/30/2012 What Was The Date Of Your Most Recent Tobacco Screening? 01/22/2018 Information n ot available 09/11/2018 Sex: Unknown Functional Status Question Answer Note LastModified by Organizat ion Details LastModified Time What is your level of alcohol consumption? Occasional [email or web address] Information not available 07/30/2012 Mental Status None recorded. Family History Relationship Description Onset Age of this Age Resolved Age Notes LastModified by Organization Details LastModified Time Father Coronary arterioscler osis previo usly record ed as CAD [email or web address] Not available 07/30/2013 14:02:49 Father Heart disease [...] Multiple Sclerosis N Ulcers N Heart Attack ([place]) N Diabetes N Bleeding Disorder N Seizures/Epilepsy [...] Diagnosis ICD10 Code Diagnosis Note 3065 Jarek Mckeno [facility] [address] [place] [address] 07/02/2012 14:30:43 09/17/2012 15:01:18 4253 Jade Golden MD [facility] [address] [place] [address] 07/30/2012 14:44:14 07/30/2012 17:37:50 4588 Jarek Mckeon [facility] [address] [place] [address] 08/06/2012 17:41:16 08/06/2012 17:41:35 6648 Jarek Mckeon [facility] [address] [place] [address] 09/25/2012 13:34:06 09/25/2012 14:26:30 7809 Jade Golden MD [facility] [address] [facility] [place] [address] 10/22/2012 09:20:16 10/22/2012 17:22:51 [id number] Jerome Sauer [facility] [address] [facility] [place] [address] 01/22/2013 13:39:02 01/22/2013 14:43:24 [id number] Jade Golden MD [facility] [address] [facility] [place] [address] 07/30/2013 13:39:44 08/03/2013 11:26:00 Osteoarthritis of knee 481238877 [id number] Jade Golden MD [facility] [address] [facility] [place] [place] [address] 06/26/2017 15:01:58 06/26/2017 16:35:11 Osteoarthritis of knee 608979252 M17.11 RIGHT knee pain consistent with: Grade 3 lateral compartmen t, 1 medial compartmen t and moderate patellofem oral osteoarthr osis. There is mild lateral greater than medial meniscal derangemen t and medial retinacula r sprain. Malaise and fatigue 2717 [address]8527 R53.83 E27.1 M89.9 M94.9 Antibiotic prophylaxis indicated 627074533 Z78.9 Anxiety 42339865 F41.9 Derangemen t of meniscus 534983711 M23.306 [id number] Jade Golden MD [facility] [address] [facility] [place] [address] 07/03/2017 08:04:03 07/03/2017 10:51:08 Osteoarthritis of knee 725616749 M17.11 RIGHT knee pain consistent with: Grade 3 lateral compartmen t, 1 medial compartmen t and moderate patellofem oral osteoarthr osis. There is mild lateral greater than medial meniscal derangemen t and medial retinacula r sprain. [id number] Jade Golden MD [facility] [address] [place] [address] 10/08/2017 09:56:23 10/08/2017 11:44:59 Osteoarthritis of knee 064487648 M17.11 RIGHT knee pain consistent with: Grade 3 lateral compartmen t, 1 medial compartmen t and moderate patellofem oral osteoarthr osis. There is mild lateral greater than medial meniscal derangemen t and medial retinacula r sprain. [id number] Jade Golden MD [facility] [address] [place] [address] 11/06/2017 17:23:09 11/11/2017 08:58:23 Osteoarthritis of knee 164931945 M17.11 RIGHT knee pain consistent with: Grade 3 lateral compartmen t, 1 medial compartmen t and moderate patellofem oral osteoarthr osis. There is mild lateral greater than medial meniscal derangemen t and medial retinacula r sprain. [id number] Jade Golden MD [facility] [address] [place] [address] 01/22/2018 14:45:58 01/28/2018 08:20:07 Osteoarthritis of knee 596950757 M17.11 RIGHT knee pain consistent with: Grade 3 lateral compartmen t, 1 medial compartmen t and moderate patellofem oral osteoarthr osis. There is mild lateral greater than medial meniscal derangemen t and medial retinacula r sprain. [id number] Cristian Mccormick [facility] [address] [place] [address] 10/09/2023 10:59:55 10/09/2023 15:38:15 Bilateral osteoarthritis of knees 7527060791 08014 M17.0 Treatment alternativ es were discussed with the patient in detail. The patient has tried several conservati ve measures including but not limited to rest, ice, and NSAIDs with no beneficial relief. Given the imaging results and the duration of the patient s symptoms, feel the patient would benefit from BMAC/fat autograft to bilateral knees.. Did discuss the role of obstetrics teacher braces, however she would like to see if she gets relief from the injections for moving forward with bilateral knee obstetrics teacher braces. We discussed the need for a PRP booster at [facility] the 12-week vianca. The risks and [...] in direct evaluation and subsequent care planning. [id number] MARK ANTHONY CAMARGO PA-C [facility] [address] [facility] [place] [address] 11/06/2023 13:15:52 11/06/2023 14:10:45 Bilateral osteoarthritis of knees 6110939925 77145 M17.0 Vitamin D deficiency 347 11849 E55.9 R53.83 M89.9 M94.9 Recommend vitamin D 50,000 IU/week x12 weeks and recheck. Health Concerns Section Related Observation LastModified by Organization Detai ls LastModified Time None Recorded Concern Status LastModified by Organization Details LastModified Time None Recorded Advance Directives Directive None Recorded Payers Insurance Date Sequence Insurance Name Policy Number Policy Duran Covered Member ID Duran Member ID Guarantor Name 03/05/2024 1 [place] [id number] Siria Ventura [id number] Siria Marina 05/03/2024 1 [place] Siria Marina [id number] Siria Marina 03/05/2024 1 [place] [id number] Siria Marina [id number] Siria Marina 05/04/2024 2 [employer] (MEDICARE SUPPLEMENT) Siria Marina [id number] Siria Bianchiston 03/05/2024 1 [id number] Sirai Marina [id number] Siria Marina Notes Date Note Type Note Provider Name and Address Organization Details Recorded Time 10/08/2017 text/html Patient reports right knee 60% imp vs pretx. Jade berry, [facility] [employer], [facility] 10/08/2017 11:41:03 11/06/2017 text/html See Dictated NoteReported bypatient.Notes:SEE DICTATED NOTES John berry, [facility] 11/08/2017 11:25:42 01/22/2018 text/html See Dictated NoteReported bypatient.Notes:SEE DICTATED NOTES John berry, [facility] 01/27/2018 22:05:38 10/09/2023 text/html 62-year-old fema dash presents today chief complaint bilateral knee pain. [...] in her knee knee pain. Cristian Mccormick [address] [facility] [address], [place], [address], [facility] 10/09/2023 11:55:43 11/06/2023 text/html 63 y/o F [...] illness, CP, SOB. MARK ANTHONY CAMARGO PA-C [address], [place], [address], [facility], [facility] 11/12/2023 14:54:55 OBGyn Episode No OBEpisode recorded.
[2024-09-09 08:23] LABS: Hematocrit 39.3 % (37.0-47.0); Hemoglobin 13.2 g/dL (12.0-15.0); Mean Corpuscular HGB Conc 33.6 g/dl (32-36); Mean Corpuscular Hemoglobin 28.9 pg (26-34); Mean Corpuscular Volume 86.0 fl (80-100); Platelet Count Result 376 k/mm3 (150-375); Red Blood Count 4.57 M/mm3 (4.2-5.4); White Blood Count 7.3 K/mm3 (4.5-10.0)
[2024-09-09 08:45] LABS: Anion Gap 11 mmol/L (4-12); Blood Urea Nitrogen 16 mg/dL (7-17); Calcium 9.4 mg/dL (8.4-10.2); Carbon Dioxide 24 mmol/L (22-30); Chloride 100 mmol/L (98-107); Estimated CRCL calculation 81 ml/min; Estimated Glomerular Filt Rate > 60; Glucose 78 mg/dL (65-110); Potassium 3.4 mmol/L (3.4-5.0); Sodium 135 mmol/L (137-145)
[2024-09-09] MEDS: fentaNYL CITRATE INJ (*CRX) 100 MCG/2 ML VIAL 50 MCG IV PUSH (09:25)
[2024-09-09] MEDS: MIDAZOLAM HCL (*CRX) 10 MG/2 ML VIAL 6 MG IV PUSH (09:28)
--- NOTE | 2024-09-09 09:50 | WPDMODSED ---
Moderate Sedation Note-Pt Data Patient Data Diagnosis: Aortic stenosis, severity unclear Present Complaint: No complaint Procedure to be performed/Plan: Transesophageal echocardiogram with aortic valve planimetry Allergies Allergy/AdvReac Type Severity Reaction Status Date / Time iohexol (From CONTRAST - CT, Allergy Severe Rash Verified 09/09/24 08:12 XRAY) iodine Allergy Unknown Skin Verified 09/09/24 08:12 irritation Influenza Virus Vaccines AdvReac Severe severe, Verified 09/09/24 08:12 long-term influenza-like illness Contrast Media Allergy Unknown RASH Uncoded 09/09/24 08:12 Home Medications ?Medication ?Instructions ?Recorded ?Confirmed ?Type esomeprazole magnesium 40 mg 20 mg PO DAILY 11/18/19 09/09/24 History capsule,delayed release (Nexium) kmizoxle-wvxd-bjcb 8 mg-folic 400 1 tablet PO DAILY 12/23/19 09/08/24 History mcg-K 50 mcg-lutein 300 mcg tablet (Centrum Silver Women) vit C,T-Ad-pbhscm-lutein-zeaxan 60 1 cap PO DAILY 11/24/20 09/08/24 History mg-13.5 mg-15 mg-2 mg-6 mg capsule (Ocuvite Lutein and Zeaxanthin) cetirizine 10 mg tablet (Zyrtec) 10 mg PO DAILY PRN allergy symptoms 05/28/22 09/08/24 History hydrochlorothiazide 12.5 mg tablet 12.5 mg PO DAILY #90 tabs 04/14/24 09/08/24 Rx amlodipine 2.5 mg tablet See Rx Instructions .Route 07/01/24 09/08/24 Rx .COMPLEX #30 tabs gabapentin 300 mg capsule 300 mg PO DAILY #30 caps 07/02/24 09/08/24 Rx ferrous sulfate 325 mg (65 mg 325 mg PO DAILY #60 tabs 07/03/24 09/08/24 Rx iron) tablet tramadol 50 mg tablet 50 mg PO Q6H PRN pain #30 tabs 07/30/24 09/08/24 Rx tirzepatide (weight loss) 10 10 mg (0.5 mL) subcut WEEKLY #2 mL 08/23/24 09/08/24 Rx mg/0.5 mL subcutaneous pen injector (Zepbound) lisinopril 40 mg tablet 40 mg PO DAILY #30 tabs 09/08/24 09/09/24 Rx Sedation/Anesthesia: No previous sedation/anesthesia problems (including family history). COUNTS INCLUDE 234 BEDS AT THE [facility] Past Medical History Medical History Hip pain, left History of trigger finger Depression Body mass index (BMI) 40.0-44.9, adult (12/03/18) Current moderate episode of major depressive disorder without prior episode Essential hypertension Gastroesophageal reflux disease without esophagitis Mixed hyperlipidemia Insomnia Mild intermittent asthma without complication Osteoarthrosis, unspecified whether generalized or localized, forearm Stress Surgical History Surgical History History of carpal tunnel surgery H/O arthroscopic knee surgery Family History Family History Father Hypertension Family history of cardiovascular disease Other Family history of elevated blood lipids Family history of kidney disease Social History Social History Smoking status: Never smoker Second hand tobacco smoke exposure: Yes Alcohol intake: never Alcohol use details: rare Substance use: never Substance use type: does not use Lack of Transportation: No Lack of Food: Never True Current Housing: I Have Housing Concerned About Future Housing: No Difficulty Paying Gas/Electric Bills: No Difficulty Paying for Meds: No Currently Unemployed: No Education: Bachelor's Degree Difficulty w/ Childcare or Family Care: No Living arrangements: with family Occupation/Education: occupation Gender identity (if verbalized by the patient): Female Sexual Orientation (if Verbalized by the Patient): Straight or Heterosexual Spiritual care concerns: No Mod Sed Physical Exam Physical Exam Pre Procedural Exam: Normal: Appearance, Throat, Airway, Lungs, Heart Size, Heart Rate, Heart Rhythm, Neuro Exam and Extremities Hours since solid foods: 12 Hours since liquid intake: 12 Mallampati Classification: class II Internal Medicine - PN: Obj Da Vital Signs Vital Signs: Vital Signs - 24 hr 09/09/24 08:12 09/09/24 09:45 Temperature 36.4 C Pulse Rate 85 86 Respiratory Rate 16 14 Blood Pressure 139/96 H 109/78 Pulse Oximetry 100 100 Oxygen Delivery Room Air Room Air Labs 09/09/24 08:17 09/09/24 08:17 Labs: Laboratory Results - last 24 hr 09/09/24 08:17 WBC 7.3 RBC 4.57 Hgb 13.2 Hct 39.3 MCV 86.0 MCH 28.9 MCHC 33.6 RDW 13.0 Plt Count 376 H MPV 8.7 Sodium 135 L Potassium 3.4 Chloride 100 Carbon Dioxide 24 Anion Gap 11 BUN 16 Creatinine 0.58 L Estim Creat Clear Calc 81 Estimated GFR > 60 Glucose 78 Calcium 9.4 ASA Classification/Sedation ASA Classification/Sedation ASA Class: II Emergent: No Risks: Risks, benefits and alternatives explained and patient/family accepted plan for sedation. Patient re-evaluated immediately prior to sedation.
--- NOTE | 2024-09-09 09:51 | WPDCARDPROC ---
Cardiac Cath Procedure Note Date of procedure:: 09/09/24 Performing physician:: Bubba Mercado MD Indication:: Aortic valve stenosis, preop evaluation prior to noncardiac surgery Brief clinical history:: This is a 63-year-old woman who has no cardiac symptoms. She has a cardiac murmur and a transthoracic echocardiogram was done which was interpreted as critical aortic stenosis. The patient does not have any LVH on ECG. Esophageal ECHO has been recommended to provide clarification regarding severity of her aortic valve disease Procedure Procedure performed:: Transesophageal echo cardio Sedation/Medication given:: Fentanyl 50 mg Versed 6 minutes Case start time 9:25 a.m. Case end time 9:37 a.m. Estimated blood loss:: No blood loss Procedure note:: Patient was brought to the cardiac catheterization lab in the postabsorptive state in the holding area. She was in the supine position and or pharyngeal benzocaine was used for topical anesthesia. Bite block was then placed and she was then sedated using her peripheral IV in aliquots a total dosage of 50 mg of fentanyl and 6 mg of Versed were used would provided excellent sedation. The JENA probe was placed into the hypopharynx and easily advanced into the esophagus. Multiplane JENA was then performed with Doppler examination and planimetry of the aortic valve. Following this the JENA probe was withdrawn patient was observed recover from sedation. There were no apparent complications the procedure was well tolerated. Findings:: The left atrium is normal in size. The mitral valve is unremarkable in appearance. The left ventricle is normal in size and exhibits mild concentric hypertrophy. Contractility is vigorous in all segments with an ejection fraction of 70-75%. The aortic valve is a trileaflet structure which has fibrocalcific nodular thickening. There is bxpv-em-sjuuxqmo impairment of leaflet excursion. Planimetry shows aortic valve area between 1.4 and 1.8 cm2. There was no detectable aortic regurgitation. Right-sided chambers are unremarkable in appearance there is no pericardial fluid. Conclusion:: Transesophageal echocardiogram demonstrates fibrocalcific aortic valve disease with mild aortic stenosis by planimetry Mild LVH with vigorous systolic function Bubba Mercado MD [facility]
== END 2024-09-09 10:52 | disposition home or self-care (01) ==
PROVIDERS: PCP Family Medicine; Visit Provider Specialist
PROC: (CPT 93312; principal; 2024-09-09 09:30)
DX: I35.0 Nonrheumatic aortic (valve) stenosis (principal); I10 Essential (primary) hypertension; K21.9 Gastro-esophageal reflux disease without esophagitis; E78.2 Mixed hyperlipidemia; G47.00 Insomnia, unspecified; J45.909 Unspecified asthma, uncomplicated; F32.A Depression, unspecified; F32.9 Major depressive disorder, single episode, unspecified; M19.90 Unspecified osteoarthritis, unspecified site; Z79.891 Long term (current) use of opiate analgesic; Z79.85 Long-term (current) use of injectable non-insulin antidiabetic drugs; Z98.890 Other specified postprocedural states; Z82.49 Family history of ischemic heart disease and other diseases of the circulatory system
CPT/HCPCS: 36415; 80048; 85027; 93312; 93320; 93325; J2250; J3010; J7040

== ENCOUNTER 2024-09-28 10:45 | Outpatient (CLI) | payer MEDICARE, OTHER, SELFPAY ==
--- OUTSIDE RECORDS SUMMARY | 2024-09-28 10:54 | XMS_ITS | Clinical Summary ---
Author Organization [facility] Address [address] [place] [address] Phone Care Team Providers Care Event Specialist Food Demonstrator Name Role Phone Miscellaneous, Not In File [...] Encounters Date Type Department Care Team Description 09/09/2024 Orders Only [facility] Information Management [address] [place] [address] Bubba Mercado MD 09/09/2024 Telephone [facility] Cardiology [address] [facility] [address] [place] [phone] Bubba Mercado MD 09/04/2024 Telephone [facility] Cardiology [address] [facility] [address] [place] [phone] Bubba Mercado MD 09/03/2024 1:00 PM CDT Office Visit [facility] Cardiology [address] [place] [address] [place] [phone] Bubba Mercado MD Preoperative clearance (Primary Dx); Nonrheumatic aortic (valve) stenosis; Lipid screening 09/03/2024 Orders Only [facility] Cardiology [address] [place] [phone] Janett Maldonado MD 09/03/[address] [phone] Bubba Mercado MD 08/12/[address] [place] [phone] Bubba Mercado MD 07/07/2024 Orders Only [facility] [address] [place] [phone] Unknown, Notinfile from Last 3 Months Social [...] Procedure Name Priority Date/Time Associated Diagnosis Comments CARDIOLOGY DOCUMENT SCAN 09/09/2024 TRANSTHORACIC ECHO (TTE) LIMITED/FOLLOWUP Routine 09/03/2024 3:56 PM CDT POCT LIPID PANEL Routine 09/03/2024 12:5 1 PM CDT Lipid screening SURGICAL PATHOLOGY Routine 07/07/2024 2: 20 PM CDT DIGITAL MAMMOGRAPHY Routine 08/05/2012 3 :02 PM CDT from Last 3 Months or Most Recently Relevant to Health Maintenance Results * Cardiology Document Scan (09/09/2024) Anatomical Region Laterality Modality Other us Bubba Mercado MD CV CARDIAC SERVICES PROC EDURES Final Result * Transthoracic Echo (TTE) Limited/Followup (09/03/2024 3:56 [...] Capillary blood 09/03/2024 1 2:51 PM CDT us Bubba Mercado MD POINT OF CARE TEST ORDER BRYNN Final Result * Surgical pathology (07/07/2024 2:20 PM CDT) Skin, shave biopsy 07/07/2024 2:20 PM CDT 07/08/2024 9:00 AM CDT Narrative 07/09/2024 11:04 AM CDT EPIC results best viewed via link to PDF [facility] [address] [place] [address], [address], [place] [address] [email or web address] Note to Patients: This report may contain [...] REPORTED: 07/09/2024 Submitting Physician Information: Sara Gomez, [facility], [address] [place] [address], DERMATOPATHOLOGY REPORT RESULTS DIAGNOSIS: SKIN, INFERIOR LUMBAR [...] sxt/anc ICD-9 A; ZSD.1411 Clerical Data A; 98704 The characteristics of special, immunohistochemical, and immunofluorescence stains and in-situ hybridization tests performed by the [facility] were deemed acceptable in ongoing aerospace quality engineer measures and in compliance with regulations drawn from the Clinical Laboratory Improvement Act fb0328 (CLIA '88). Control reactions for all stains performed were deemed adequate and appropriate by a pathologist prior to evaluation of patient tissue. Some diagnoses were rendered with the assistance of laboratory-developed tests utilizing analyte-specific reagents; the performance characteristic of these tests were determined by [facility] and are not cleared or approved by the [place] Food an Drug administration. Laboratory developed test may only be performed in a facility that is certified by the [facility] as a high-complexity laboratory under CLIA '88. These tests are used for clinical purposes and are not investigational. us Notinfile Unknown LAB PATHOLOGY ORDERABLES Final Result * DIGITAL MAMMOGRAPHY (08/05/2012 3:02 PM CDT) Anatomical Region Laterality Modality Breast Mammography 08/05/2012 3:02 PM CDT Narrative 08/05/2012 7:49 PM CDT Acc#: [id number] TAMAR 0017 - Screening Mamm BI DATE [...] BENIGN. TECHNOLOGIST: FERNANDO HALLMAN TECHNOLOGIST MEDICAL IMAGING RETIREMENT PLAN COUNSELOR: LB3 TRANSCRIBE DATE/TIME: Aug 05 2012 7:31P RADIOLOGIST: SANTOS ELAM M.D. READ ON: Aug 05 2012 5:11P ORDERING DR: RENAN GREENBERG M.D. THIS DOCUMENT HAS BEEN ELECTRONICALLY SIGNED BY: SANTOS ELAM M.D. ON: Aug 05 2012 7:49P RETIREMENT PLAN COUNSELOR: LB3 TRANSCRIBE DATE/TIME: Aug 05 2012 7:31P RADIOLOGIST: SANTSO ELAM M.D. READ ON: Aug 05 2012 5:11P ORDERING DR: RENAN GREENBERG M.D. THIS DOCUMENT HAS BEEN ELECTRONICALLY SIGNED BY: SANTOS ELAM M.D. ON: Aug 05 2012 7:49P Procedure Note Provider, MD Janett - 06/08/2016 Acc#: [id number] TAMAR 0017 - Screening Mamm BI DATE [...] BENIGN. TECHNOLOGIST: FERNANDO HALLMAN TECHNOLOGIST MEDICAL IMAGING RETIREMENT PLAN COUNSELOR: LB3 TRANSCRIBE DATE/TIME: Aug 05 2012 7:31P RADIOLOGIST: SANTOS ELAM M.D. READ ON: Aug 05 2012 5:11P ORDERING DR: RENAN GREENBERG M.D. THIS DOCUMENT HAS BEEN ELECTRONICALLY SIGNED BY: SANTOS ELAM M.D. ON: Aug 05 2012 7:49P RETIREMENT PLAN COUNSELOR: LB3 TRANSCRIBE DATE/TIME: Aug 05 2012 7:31P RADIOLOGIST: SANTOS ELAM M.D. READ ON: Aug 05 2012 5:11P ORDERING DR: RENAN GREENBERG M.D. THIS DOCUMENT HAS BEEN ELECTRONICALLY SIGNED BY: SANTOS ELAM M.D. ON: Aug 05 2012 7:49P us Historical Provider MD CHIN MAMMO PROCEDURES Kristine l Result from Last 3 Months or Most Recently Relevant to Health Maintenance Insurance MEDICARE [facility] [place] [address] MEDICARE [facility] Care Teams Event Specialist Food Demonstrator Relationship Specialty Start Date End Date Miscellaneous, Not In File PCP - General 06/14/23
--- OUTSIDE RECORDS SUMMARY | 2024-09-28 10:54 | XMS_ITS | Clinical Summary ---
Author Organization [facility] Address [address] [place] [address] Care Team Providers Care Hepatologist Name Role Phone Serena Caceres MD Primary Care Provider Source Comments [facility],non-owned Affiliates and Associated Physician Practices is amultiple site organization consisting of ambulatory clinics and hospital sitesin [place], [place], [place] and [place]. This disclosure is being madepursuant to the Care Everywhere program and may not contain all information available regarding this patient. 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 [facility] Breast Care utilizes Easy Bill Online as a reminder system to notify patients [...] BILL Comment: Z01.419 Z11.51 Z12.39 Performed by [facility] INSURANCE BILL Comment:Payton Cho, Cyto technologist (ASCP) [...] Thin Prep Vial Resulting Agency Comment [facility] [place] [address] [facility] W [id number] us Jade Sprague MD LAB - PATHOLOGY/CYTOLOGY AMANDEEP MATHIAS Final Result [facility] INSURANCE BILL [address] [place] [address] from Last 3 Months or Most Recently Relevant to Health Maintenance Insurance [facility] Care Teams Hepatologist Relationship Specialty Start Date End Date Serena Caceres MD [address] [place] [address] PCP - General Family Medicine 11/08/17
[2024-09-28 12:16] LABS: Hemoglobin A1C 4.9 % (<5.7)
[2024-09-28 12:23] LABS: Albumin Level 4.3 g/dL (3.5-5.1)
[2024-09-28 13:21] LABS: MRSA (PCR) NOT DETECTED (NOT DETECTE)
== END 2024-09-28 10:46 | disposition home or self-care (01) ==
LOC: ANHSURGERY 10:49
PROVIDERS: PCP Family Medicine; Visit Provider Orthopaedic Surgery
DX: Z01.812 Encounter for preprocedural laboratory examination (principal); M16.12 Unilateral primary osteoarthritis, left hip
CPT/HCPCS: 80307; 82040; 83036; 87641

== ENCOUNTER 2024-10-26 02:30 | Day surgery (SDC) | payer MEDICARE, OTHER, SELFPAY ==
--- NOTE | 2024-09-28 10:47 | PC.NURSE ---
Report to the Outpatient Waiting Room, entrance under the green pavilion located off [facility], at time __10 AM on date _10/26/24 . Planned Procedure Time: __1200 NOON .? Time changes happen often and if your time is changed the preop area will call you the afternoon before. - You and your visitor will be asked to self-screen and do not enter if you have any COVID symptoms. Please call surgeon if you need to reschedule. - A mask is optional within the hospital at this time. Patients may have clear liquids (water, carbonated beverages, clear teas, apple juice) until 3 hours prior to surgery ( 9AM) with a maximum of 20 ounces. - No food from midnight until time of surgery and no smoking, or chewing tobacco (or any form of nicotine). No chewing gum, candy or mints. Take only the following medications with a SIP of water on the morning of surgery: ____NONE DO NOT STOP ANY OF YOUR OTHER PRESCRIPTION MEDICATIONS PRIOR TO SURGERY EXCEPT THE FOLLOWING Hold all vitamins and supplements for 3 days per anesthesiologist. LAST DOSE 10/22/24 Medications to discontinue per physician ____ZEPBOUND HOLD 10 DAYS PRE OP PER ANESTHESIA LAST DOSE_ 10/15/24 HOLD IBUPROFEN 7 DAYS PRE O P PER DR LYN LAST DOSE 10/18/24 Please no make-up, nail telugu, hairspray, perfume, deodorant, or body powder the day of surgery.? No jewelry (including any body piercings) or valuables the day of surgery, leave them at home.? Please take a shower or bath the night before, or the morning of, surgery with an antibacterial soap.? Wear comfortable, loose fitting clothing.? Children are encouraged to wear pajamas. - Jewelry must be removed prior to entering the operating room.? Rings and piercings that are not removed may be cut off. - The hospital will not accept responsibility for valuables.? - Please leave all valuables, including medications, at home the day of surgery. If you are going home after surgery, a licensed water truck driver must drive you home.? - NO public transportation without another adult if you receive anesthesia. - We recommend that an adult stay with you for 24 hours following discharge. - We also recommend that you do not drive, make important decision, drink alcoholic beverages, or take any drugs that were not prescribed by your health care provider for at least 24 hours after your discharge time. For Pediatric surgeries, we recommend two adults accompany the child home. Follow any additional instructions given to you from your surgeon. VERBAL AND WRITTEN instructions given to _PATIENT__AND SPOUSE CLAY and asked if any additional questions and then verbalized understanding. Patient advised to call surgeon office or pre surgery nurse liaison [phone] if any additional questions.
[2024-09-28 10:53] VITALS: BMI 32.8
[2024-09-28 11:44] VITALS: BP 133/89; PULSE 83; RESP 18; TEMP 36.9; O2SAT 98
[2024-10-26] VITALS (17 sets, daily range): BP systolic 88–132; BP diastolic 47–82; PULSE 84–107; RESP 10–20; TEMP 36.2–37.1; O2SAT 97–100
--- NOTE | ~2024-10-26 | XR_ITS ---
EXAMINATION: XR hip LT min 2V DATE: 10/26/2024 15:34 INDICATION: Left total hip arthroplasty TECHNIQUE: 2 views left hip FINDINGS: There is a left total hip arthroplasty in expected position. Subcutaneous gas with soft tissue swelling are consistent with recent surgery. IMPRESSION: 1. Recent left total hip arthroplasty. Reviewed, dictated and finalized at location O.
--- NOTE | ~2024-10-26 | XR_ITS ---
XR surgery orthopedic Indication: Intraoperative examination left hip arthroplasty TECHNIQUE: Fluoroscopy used during Intraoperative examination left hip arthroplasty performed by [Fabio Santizo MD] on 10/26/2024. One fluoroscopic image submitted. FINDINGS: Correlate with procedure note. IMPRESSION: Fluoroscopy used during Intraoperative examination left hip arthroplasty. Reviewed, dictated and finalized at location O. IMPRESSION: Fluoroscopy used during Intraoperative examination left hip arthrop lasty.
--- OUTSIDE RECORDS SUMMARY | 2024-10-26 02:33 | XMS_ITS | Clinical Summary ---
Author Organization [facility] Address [address] [place] [address] Care Team Providers Care Corporate Director Of Human Resources Name Role Phone Serena Caceres MD Primary Care Provider [phone] Source Comments [facility],non-owned Affiliates and Associated Physician Practices is amultiple site organization consisting of ambulatory clinics and hospital sitesin [place], [place], [place] and [place]. This disclosure is being madepursuant to the Care Everywhere program and may not contain all information available regarding this patient. 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 [facility] Breast Care utilizes SimpleReach as a reminder system to notify patients [...] BILL Comment: Z01.419 Z11.51 Z12.39 Performed by [facility] INSURANCE BILL Comment:Payton Cho, Cyto technologist (ASCP) [...] Thin Prep Vial Resulting Agency Comment [facility] [place] [address] [facility] W [id number] us Jade Sprague MD LAB - PATHOLOGY/CYTOLOGY AMANDEEP MATHIAS Final Result [facility] INSURANCE BILL [address] [place] [address] from Last 3 Months or Most Recently Relevant to Health Maintenance Insurance [facility] Care Teams Corporate Director Of Human Resources Relationship Specialty Start Date End Date Serena Caceres MD [address] [place] [address] PCP - General Family Medicine 11/08/17
--- OUTSIDE RECORDS SUMMARY | 2024-10-26 02:33 | XMS_ITS | Clinical Summary ---
Author Organization [facility] Address [address] [place] [address] Phone Care Team Providers Care Pinion Sorter Name Role Phone Miscellaneous, Not In File [...] Department Care Team Description 09/09/2024 Orders Only [facility] Health Information Management [address] [place] [address] Bubba Mercado MD 09/09/[address] [facility] Cardiology [address] [place] [address] [place] [phone] Bubba Mercado MD 09/04/[address] [facility] Cardiology [address] [facility] [address] [place] [phone] Bubba Mercado MD 09/03/2024 1:00 PM CDT Office Visit [facility] Cardiology [address] [place] [phone] Bubba Mercado MD Preoperative clearance (Primary Dx); Nonrheumatic aortic (valve) stenosis; Lipid screening 09/03/[address] [facility] Cardiology [address] [place] [phone] Janett Maldonado MD 09/03/[address] [phone] Bubba Mercado MD 08/12/[address] [facility] Cardiology [address] [place] [address] [place] [phone] Bubba Mercado MD from Last 3 Months Social History Tobacco [...] 09/03/2024 12:5 1 PM CDT Lipid screening DIGITAL MAMMOGRAPHY Routine 08/05/2012 3 :02 PM CDT from Last 3 Months or Most Recently Relevant to Health Maintenance Results * Cardiology Document Scan (09/09/2024) Anatomical Region Laterality Modality Other Bubba Mercado MD CV CARDIAC SERVICES PROC [...] CARE TEST ORDER BRYNN Final Result * DIGITAL MAMMOGRAPHY (08/05/2012 3:02 PM CDT) Anatomical Region Laterality Modality Breast Mammography 08/05/2012 3:02 PM CDT Narrative 08/05/2012 7:49 PM CDT Acc#: [id number] TAMAR 0017 - Screening Mamm BI DATE [...] BENIGN. TECHNOLOGIST: FERNANDO HALLMAN TECHNOLOGIST MEDICAL IMAGING ROUTE AGENT: LB3 TRANSCRIBE DATE/TIME: Aug 05 2012 7:31P RADIOLOGIST: SANTOS ELAM M.D. READ ON: Aug 05 2012 5:11P ORDERING DR: RENAN GREENBERG M.D. THIS DOCUMENT HAS BEEN ELECTRONICALLY SIGNED BY: SANTOS ELAM M.D. ON: Aug 05 2012 7:49P ROUTE AGENT: LB3 TRANSCRIBE DATE/TIME: Aug 05 2012 7:31P RADIOLOGIST: SANTOS ELAM M.D. READ ON: Aug 05 2012 5:11P ORDERING DR: RENAN GREENBERG M.D. THIS DOCUMENT HAS BEEN ELECTRONICALLY SIGNED BY: SANTOS ELAM M.D. ON: Aug 05 2012 7:49P Procedure Note Provider, MD Janett - 06/08/2016 Acc#: [id number] TAMAR 0017 - Screening Mamm BI DATE [...] BENIGN. TECHNOLOGIST: FERNANDO HALLMAN TECHNOLOGIST MEDICAL IMAGING ROUTE AGENT: LBPaul TRANSCRIBE DATE/TIME: Aug 05 2012 7:31P RADIOLOGIST: SANTOS ELAM M.D. READ ON: Aug 05 2012 5:11P ORDERING DR: RENAN GREENBERG M.D. THIS DOCUMENT HAS BEEN ELECTRONICALLY SIGNED BY: SANTOS ELAM M.D. ON: Aug 05 2012 7:49P ROUTE AGENT: ANGELLA TRANSCRIBE DATE/TIME: Aug 05 2012 7:31P RADIOLOGIST: SANTOS ELAM M.D. READ ON: Aug 05 2012 5:11P ORDERING DR: RENAN GREENBERG M.D. THIS DOCUMENT HAS BEEN ELECTRONICALLY SIGNED BY: SANTOS ELAM M.D. ON: Aug 05 2012 7:49P Historical Provider IMTami MAMMO PROCEDURES Kristine l Result from Last 3 Months or Most Recently Relevant to Health Maintenance Insurance MEDICARE [facility] Address: [facility] [address] [place] [address] [place] [address] MEDICARE [employer] [place] Care Teams Pinion Sorter Relationship Specialty Start Date End Date Miscellaneous, Not In File PCP - General 06/14/23
[2024-10-26] MEDS: LACTATED RINGERS 1,000 ML 30 ML IV CONT ×2 (11:00→15:07)
[2024-10-26] MEDS: TRANEXAMIC ACID 1,000MG/ISO100 1,000 MG/100 ML BAG 200 MG IVPB (11:00)
[2024-10-26] MEDS: ACETAMINOPHEN 500 MG TABLET 1000 MG PO (11:00)
--- NOTE | 2024-10-26 11:17 | WPDANESEPPF ---
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 Patient Data Age: 63 Gender: F Height: 1.57 m Weight: 81.3 kg Last Vital Signs Temp 36.9 C 09/28/24 11:44 Pulse 83 09/28/24 11:44 Resp 18 09/28/24 11:44 BP 133/89 09/28/24 11:44 Pulse Ox 98 09/28/24 11:44 O2 Del Method Room Air 09/28/24 11:44 Allergies Allergy/AdvReac Type Severity Reaction Status Date / Time iohexol (From CONTRAST - CT, Allergy Severe Rash/HIVES Verified 10/14/24 13:07 XRAY) iodine Allergy Unknown Skin Verified 10/14/24 13:07 irritation Influenza Virus Vaccines AdvReac Severe severe, Verified 10/14/24 13:07 long-term influenza-like illness Contrast Media Allergy Unknown RASH/HIVES Uncoded 09/28/24 10:55 Home Medications ?Medication ?Instructions ?Recorded ?Confirmed ?Type esomeprazole magnesium 40 mg 20 mg PO DAILY 11/18/19 10/14/24 History capsule,delayed release (Nexium) xrirwznz-gbct-wicq 8 mg-folic 400 1 tablet PO DAILY 12/23/19 10/14/24 History mcg-K 50 mcg-lutein 300 mcg tablet (Centrum Silver Women) vit C,A-Sm-aszwnz-lutein-zeaxan 60 1 cap PO DAILY 11/24/20 10/14/24 History mg-13.5 mg-15 mg-2 mg-6 mg capsule (Ocuvite Lutein and Zeaxanthin) cetirizine 10 mg tablet (Zyrtec) 10 mg PO DAILY PRN allergy symptoms 05/28/22 10/14/24 History hydrochlorothiazide 12.5 mg tablet 12.5 mg PO DAILY #90 tabs 04/14/24 10/14/24 Rx amlodipine 2.5 mg tablet See Rx Instructions .Route 07/01/24 10/14/24 Rx .COMPLEX #30 tabs ferrous sulfate 325 mg (65 mg 325 mg PO DAILY #60 tabs 07/03/24 10/14/24 Rx iron) tablet tramadol 50 mg tablet 50 mg PO Q6H PRN pain #30 tabs 07/30/24 10/14/24 Rx tirzepatide (weight loss) 10 10 mg (0.5 mL) subcut WEEKLY #2 mL 08/23/24 10/14/24 Rx mg/0.5 mL subcutaneous pen injector (Zepbound) lisinopril 40 mg tablet 40 mg PO DAILY #30 tabs 09/08/24 10/14/24 Rx acetaminophen 650 mg 1,300 mg PO PRN PRN pain 09/28/24 10/14/24 History tablet,extended release (Tylenol Arthritis Pain) gabapentin 300 mg capsule 300 mg PO QPM 09/28/24 10/14/24 History ibuprofen 200 mg tablet (Advil) 800 mg PO PRN PRN pain 09/28/24 10/14/24 History omega 4-mhv-pfd-fish oil 300 1 cap PO DAILY 09/28/24 10/14/24 History mg-1,000 mg capsule (Fish Oil) Laboratory Tests 10/26/24 10:15 Blood Type B Positive Antibody Screen Negative Patient hx anesthesia problems: none Family hx anesthesia problems: none Results Review: All pre-operative results and documents have been reviewed as part of the pre-operative evaluation. [facility] Past Medical History Medical History Hip pain, left History of trigger finger Depression Body mass index (BMI) 40.0-44.9, adult (12/03/18) Current moderate episode of major depressive disorder without prior episode Essential hypertension Gastroesophageal reflux disease without esophagitis Mixed hyperlipidemia Insomnia Mild intermittent asthma without complication Osteoarthrosis, unspecified whether generalized or localized, forearm Stress Surgical History Surgical History History of carpal tunnel surgery H/O arthroscopic knee surgery Family History Family History Father Hypertension Family history of cardiovascular disease Other Family history of elevated blood lipids Family history of kidney disease Social History Social History Smoking status: Never smoker Second hand tobacco smoke exposure: Yes Additional smoking assessment comments: DENIES ANY FORM OF TOBACCO USE Alcohol intake: never Alcohol use details: rare Substance use: never Substance use type: does not use Lack of Transportation: No Lack of Food: Never True Current Housing: I Have Housing Concerned About Future Housing: No Difficulty Paying Gas/Electric Bills: No Difficulty Paying for Meds: No Currently Unemployed: No Education: Bachelor's Degree Difficulty w/ Childcare or Family Care: No Living arrangements: with family Occupation/Education: occupation Gender identity (if verbalized by the patient): Female Sexual Orientation (if Verbalized by the Patient): Straight or Heterosexual Spiritual care concerns: No Anes - Eval Final PreProcedure Day of Procedure 10/26/24 11:17 Patient weight: obese Heart: regular rate and rhythm Lungs: clear to auscultation Airway: Mallampati scale class II Neurological: alert and oriented Last oral intake: >/= 8 hours ASA classification: III Emergent: no Anesthetic plan: proceed Anesthesia type and monitoring: general ETT and standard monitoring Results Review: All pre-operative results and documents have been reviewed as part of the pre-operative evaluation. Informed Consent: The patient's anesthetic plan and its attendant risks and benefits were discussed with the patient/family/POA. Questions were solicited and answers provided to the satisfaction of the patient/family/POA.
--- NOTE | 2024-10-26 11:59 | WPDHPUPDATE1 ---
History and Physical Update Update Date/Time: 10/26/24 11:59 History and Physical has been reviewed, including an updated exam of the patient. There are NO changes in the patient's condition. Risks, benefits, and alternatives have been discussed and questions answered. Patient agrees to proceed with procedure.
[2024-10-26] MEDS: ceFAZolin 2 GM in SODIUM CHLORIDE 0.9% IV 50 ML 100 ML IVPB ×2 (12:07→20:20)
[2024-10-26] MEDS: SODIUM CHLORIDE 0.9% IV 37.7 ML, MORPHINE SULFATE INJ (*CRX) 2 MG, ROPivacaine HCL 1% 2... INFILTRATE (13:03)
[2024-10-26] MEDS: TRANEXAMIC ACID 1,000 MG/10 ML AMPUL 1000 MG IV PUSH (14:54)
[2024-10-26 16:14] LABS: Hematocrit 35.0 % (37.0-47.0); Hemoglobin 11.6 g/dL (12.0-15.0); Immature Granulocyte Percent A 1.1 % (0-0.5); Lymphocytes Absolute Auto 1.76 K/mm3 (0.9-3.2); Mean Corpuscular HGB Conc 33.1 g/dl (32-36); Mean Corpuscular Hemoglobin 29.4 pg (26-34); Mean Corpuscular Volume 88.8 fl (80-100); Nucleated Red Blood Cells Absolute Auto 0.000 K/mm3 (0.0-0.012); Nucleated Red Blood Cells Perc 0.0 % (0.0-0.2); Platelet Count Result 359 k/mm3 (150-375); Red Blood Count 3.94 M/mm3 (4.2-5.4); White Blood Count 18.6 K/mm3 (4.5-10.0)
[2024-10-26] MEDS: fentaNYL CITRATE INJ (*CRX) 100 MCG/2 ML VIAL 25 MCG IV PUSH ×2 (16:20→16:22)
[2024-10-26 16:33] LABS: Anion Gap 8 mmol/L (4-12); Blood Urea Nitrogen 19 mg/dL (7-17); Calcium 8.8 mg/dL (8.4-10.2); Carbon Dioxide 24 mmol/L (22-30); Chloride 104 mmol/L (98-107); Estimated CRCL calculation 79 ml/min; Estimated Glomerular Filt Rate > 60; Glucose 126 mg/dL (65-110); Potassium 4.1 mmol/L (3.4-5.0); Sodium 136 mmol/L (137-145)
--- NOTE | 2024-10-26 17:02 | ADMGEN ---
This patient, Siria Marina, was admitted to [facility] Surg Room 329-01. Patient/family oriented to hospital policies and general routines including ID bracelet, bed and alarms, visiting hours, pain management, procedures, bathroom and other care routines, personal items, smoking policy, room service/diet, and visiting hours. Information on how to activate the Rapid Response Team has been discussed. Patient/Family are encouraged to report perceived risks to care and to ask questions if they do not understand what they are told or what they should do.
--- NOTE | 2024-10-26 17:19 | W.PM.PROC2 ---
Procedure Note - Detailed Date of Procedure 10/26/24 Pre-op Diagnosis Left hip degenerative arthritis. Post-op Diagnosis Same Procedure Performed Left Custom Total Hip Arthroplasty Surgeon Fabio Santizo MD Recovery Auditor Xenia Orellana PA-C Anesthesia General Findings Optimal fit of the custom femoral prosthesis. The superior acetabular degenerative cyst was bone grafted with acetabular reamings. Description of Procedure The patient was given preoperative antibiotics. A general anesthetic was administered. The patient was carefully placed in the lateral decubitus position on the PEG board. The shoulders and hips were carefully positioned for component and leg length positioning reference. The hip was prepped and draped in the usual sterile fashion. A longitudinal incision was created over the posterior aspect of the greater trochanter. Careful dissection was brought down through the deep fascia with electrocautery. A minimally invasive optimized posterior approach to the hip was performed. The short external rotators and capsule were taken down in an L-shaped capsulotomy. The tissue was tagged for later repair using number 2 high strength suture. The hip was dislocated. The femoral neck cut guide was placed. The cup was taken according to the 3 dimensional planning. The femoral head was removed. The acetabulum was carefully exposed. The inferior capsule was released. The labrum was resected. The acetabular guide was placed. The 2 step reaming was used. The cup seated fairly lateral due to the pseudo acetabulum. Basket reamers were used to medialized to the medial wall. The cup was impacted into position with excellent press-fit. Two screws were placed for supplemental stability. Typical anatomic landmarks, including the bony contact points as well as the inferior transverse acetabular ligament were used to confirm cup positioning with preoperative templating. Attention was turned to the femur, which was carefully exposed. The hip was reamed and then broached sequentially utilizing the femoral preparation guide. Excellent press-fit was obtained with the broach. The hip was trialed. Measurements were utilized, including the lesser trochanter as well as the center of the femoral head and the tip of the trochanter, and excellent assessment of the offset and leg lengths were confirmed. The real component was impacted into position. Trialing confirmed appropriate leg length and offset with soft tissue balancing as well apparent feel of the leg, both at the knee and the heel. Soft tissues were assessed using the the iliotibial band. Reduction of the posterior capsule and external rotators were also used as a secondary assessment. The hip was copiously irrigated with pulsatile lavage periodically throughout the procedure. The real components were then assembled and reduced. The hip was stable throughout typical maneuvers, including extension, external rotation to 70 degrees, the position of sleep as well as flexion to 90 degrees with internal rotation past 35 degrees. The shake test confirmed stability without impingement. Osteophytes were removed as necessary. The short external rotators and capsule were repaired back to the posterior trochanter through drill holes. The deep fascia was repaired with running number 2 barbed suture, followed by 2-0 Stratafix suture and 3-0 Stratafix suture in the dermis. Steri-Strips were placed on the skin, followed by a sterile occlusive dressing. There were no complications. Meticulous hemostasis was maintained with the AquaMantys device. The patient was brought to the recovery room in stable condition. There were no complications. Physician economist research assistant, Xenia Orellana PA-C, required for surgery; including patient positioning, draping, tissue retraction, maintaining instrument position, hip dislocation/ relocation, wound closure, and dressing placement. Implants Restore 3D (Conformis) custom hip replacement. 52 mm acetabular component. 36 mm polyethylene liner. 36 mm Biolox ceramic femoral head standard. Size 5 custom hip stem. Estimated Blood Loss 600 Drains No Packing No Pathology None sent Complications No immediate complications Condition Stable Disposition PACU [facility] Billing Surgery - Charge Forward: Surgery Billing
[2024-10-26] MEDS: GABAPENTIN 300 MG CAPSULE PO (17:41)
[2024-10-26] MEDS: MELOXICAM 7.5 MG TABLET PO (17:41)
[2024-10-26] MEDS: ACETAMINOPHEN 325 MG TABLET 650 MG PO (17:41)
[2024-10-26] MEDS: traMADol HCL (*CRX) 50 MG TABLET PO (18:49)
[2024-10-26] MEDS: oxyCODONE/ACETAMINOPHEN (*CRX) 5-325 MG TABLET 1 TABLET PO (20:14)
[2024-10-26] MEDS: FAMOTIDINE 20 MG TABLET PO (20:16)
[2024-10-26] MEDS: ASPIRIN 81 MG ENTERIC TABLET PO (20:16)
[2024-10-26] MEDS: CYCLOBENZAPRINE HCL 10 MG TABLET PO (20:16)
[2024-10-27] VITALS (9 sets, daily range): BP systolic 80–147; BP diastolic 50–68; PULSE 50–112; RESP 14–18; TEMP 36.2–36.6; O2SAT 96–100
[2024-10-27] MEDS: oxyCODONE/ACETAMINOPHEN (*CRX) 5-325 MG TABLET 1 TABLET PO ×3 (00:07→09:47)
[2024-10-27] MEDS: ACETAMINOPHEN 325 MG TABLET 650 MG PO ×3 (00:08→12:14)
[2024-10-27] MEDS: SODIUM CHLORIDE 0.9% IV 1,000 ML 125 ML IV CONT (00:08)
[2024-10-27] MEDS: ceFAZolin 2 GM in SODIUM CHLORIDE 0.9% IV 50 ML 100 ML IVPB ×2 (04:01→12:14)
[2024-10-27] MEDS: CYCLOBENZAPRINE HCL 10 MG TABLET PO (04:05)
[2024-10-27 06:05] LABS: Hematocrit 29.1 % (37.0-47.0); Hemoglobin 9.4 g/dL (12.0-15.0); Immature Granulocyte Percent A 0.4 % (0-0.5); Lymphocytes Absolute Auto 2.05 K/mm3 (0.9-3.2); Mean Corpuscular HGB Conc 32.3 g/dl (32-36); Mean Corpuscular Hemoglobin 29.5 pg (26-34); Mean Corpuscular Volume 91.2 fl (80-100); Nucleated Red Blood Cells Absolute Auto 0.000 K/mm3 (0.0-0.012); Nucleated Red Blood Cells Perc 0.0 % (0.0-0.2); Platelet Count Result 279 k/mm3 (150-375); Red Blood Count 3.19 M/mm3 (4.2-5.4); White Blood Count 11.1 K/mm3 (4.5-10.0)
[2024-10-27 06:20] LABS: Anion Gap 4 mmol/L (4-12); Blood Urea Nitrogen 18 mg/dL (7-17); Calcium 8.1 mg/dL (8.4-10.2); Carbon Dioxide 27 mmol/L (22-30); Chloride 103 mmol/L (98-107); Estimated CRCL calculation 71 ml/min; Estimated Glomerular Filt Rate > 60; Glucose 106 mg/dL (65-110); Potassium 3.5 mmol/L (3.4-5.0); Sodium 134 mmol/L (137-145)
--- NOTE | 2024-10-27 06:42 | PC.NURSE ---
Up to chair for 1 hr and assisted back to bed for c/o of dizziness. BP 95/50, HR 95. IVF NS infusing at 125ml/hr.
--- NOTE | 2024-10-27 07:09 | PC.NURSE ---
made PATRICE Lopez aware of manual BP of 90/55, stated ok not to call MD, and that she will call if it gets lower. Patient was mostly asymptomatic, just a little light headed. Patient back in bed.
--- NOTE | 2024-10-27 07:42 | PC.NURSE ---
RN continuing to monitor blood pressure. Patient is on fluids. Patient is back in bed and no longer symptomatic at this time. RN will update surgeon Sukhdev on patient's current blood pressure.
--- NOTE | 2024-10-27 08:17 | WPDANESPN ---
Anes - Prog Note Post-Op Date/Time: 10/27/24 08:17 Cardiovascular status: normal Respiratory status: normal Airway patency: baseline Mental status: baseline Vital Signs: Last Vital Signs Temp 36.2 C L 10/27/24 07:49 Pulse 106 H 10/27/24 07:49 Resp 18 10/27/24 07:49 BP 80/60 L 10/27/24 07:49 Pulse Ox 97 10/27/24 08:00 O2 Del Method Room Air 10/27/24 08:00 O2 Flow Rate 1 10/26/24 20:00 Pain Score (VAS): 4 I/O: Intake & Output 10/26/24 10/27/24 10/27/24 23:59 07:59 15:59 Intake Total 730 550 Output Total 300 300 Balance 430 250 Laboratory Tests 10/27/24 05:23 10/27/24 05:23 10/26/24 10/26/24 10/27/24 10:15 16:08 05:23 WBC 18.6 H 11.1 H RBC 3.94 L 3.19 L Hgb 11.6 L 9.4 L Hct 35.0 L 29.1 L MCV 88.8 91.2 MCH 29.4 29.5 MCHC 33.1 32.3 RDW 12.9 13.2 Plt Count 359 279 MPV 8.8 9.2 Immature Gran % (Auto) 1.1 H 0.4 Neut % (Auto) 85.8 H 71.7 Lymph % (Auto) 9.5 L 18.4 [place] % (Auto) 3.2 8.9 H Eos % (Auto) 0.1 0.2 Baso % (Auto) 0.3 0.4 Lymph # (Auto) 1.76 2.05 [place] # (Auto) 0.6 1.0 H Eos # (Auto) 0.0 0.0 Baso # (Auto) 0.1 0.1 Abs Immat Gran (auto) 0.20 H 0.05 H Absolute Neuts (auto) 16.0 H 8.0 H Absolute Nucleated RBC 0.000 0.000 Nucleated RBC % 0.0 0.0 Sodium 136 L 134 L Potassium 4.1 3.5 Chloride 104 103 Carbon Dioxide 24 27 Anion Gap 8 4 BUN 19 H 18 H Creatinine 0.58 L 0.65 L Estim Creat Clear Calc 79 71 Estimated GFR > 60 > 60 Glucose 126 H 106 Calcium 8.8 8.1 L Blood Type B Positive Antibody Screen Negative Patient Feedback: Patient satisfied with anesthetic care.
--- NOTE | 2024-10-27 08:19 | PC.NURSE ---
RN spoke with SMITHA Wynn and updated her on blood pressure. She stated okay to discontinue fluids and get patient up for PT/OT. SMITHA Wynn is aware of patient's blood pressure.
[2024-10-27] MEDS: PANTOPRAZOLE 40 MG TABLET PO (09:42)
[2024-10-27] MEDS: ASPIRIN 81 MG ENTERIC TABLET PO (09:43)
[2024-10-27] MEDS: FERROUS SULFATE 325 MG TABLET BY MOUTH (09:43)
[2024-10-27] MEDS: SENNA/DOCUSATE SODIUM TABLET 2 TAB PO (09:43)
[2024-10-27] MEDS: MELOXICAM 7.5 MG TABLET PO (09:43)
[2024-10-27] MEDS: FAMOTIDINE 20 MG TABLET PO (09:43)
[2024-10-27] MEDS: oxyCODONE/ACETAMINOPHEN (*CRX) 10-325 MG TABLET 1 TAB PO (12:19)
== END 2024-10-27 13:06 | disposition home or self-care (01) ==
LOC: ANHSURGERY 11:31 → ANH3MEDSUR 16:54
PROVIDERS: Physician Assistant Surgical; PCP Family Medicine; Visit Provider Orthopaedic Surgery
PROC: (CPT 27130; principal; 2024-10-26 12:00)
DX: M16.12 Unilateral primary osteoarthritis, left hip (principal); M25.752 Osteophyte, left hip; I10 Essential (primary) hypertension; K21.9 Gastro-esophageal reflux disease without esophagitis; E78.2 Mixed hyperlipidemia; F32.A Depression, unspecified; F32.9 Major depressive disorder, single episode, unspecified; G47.00 Insomnia, unspecified; J45.909 Unspecified asthma, uncomplicated; M19.09 Primary osteoarthritis, other specified site; E66.9 Obesity, unspecified; Z68.31 Body mass index [BMI] 31.0-31.9, adult; Z79.891 Long term (current) use of opiate analgesic; Z79.85 Long-term (current) use of injectable non-insulin antidiabetic drugs; Z79.1 Long term (current) use of non-steroidal anti-inflammatories (NSAID); Z98.890 Other specified postprocedural states; Z82.49 Family history of ischemic heart disease and other diseases of the circulatory system
CPT/HCPCS: 27130; 36415; 73502; 80048; 85025; 86850; 86900; 86901; 97110; 97161; 97165; 97530; 97535; 99199; J0690; A9270; J0166; J1885; J2003; J2250; J2270; J2371; J2405; J2704; J2795; J3010; J7030; J7120

== ENCOUNTER 2024-12-22 09:25 | Outpatient (CLI) | payer MEDICARE, OTHER, SELFPAY ==
--- NOTE | ~2024-12-22 | MM_ITS ---
EXAMINATION: screening [facility] BI w deanna INDICATION: Asymptomatic, referred for screening mammogram COMPARISON: 11/28/2023 through 07/21/2020 TECHNIQUE: Digital Breast Tomosynthesis CC, MLO views of Both breasts were obtained with computer-aided detection to assist in interpretation of the study. FINDINGS: There are scattered areas of fibroglandular density. There is an asymmetry seen on the MLO view in the Superior right breast at middle third. There is an asymmetry seen on the cc view in the medial, middle third left breast. Elsewhere, there are no mammographic features of malignancy. IMPRESSION: 1. Bilateral breast asymmetries. RECOMMENDATION: Bilateral breast Diagnostic mammogram with true lateral, appropriate spot compression views and an ultrasound if needed. BI-RADS Category 0: Incomplete: Needs additional imaging evaluation. Reviewed, dictated and finalized at location B. STANT FITNESS MANAGER IMPRESSION: 1. Bilateral breast asymmetries. RECOMMENDATION: Bilateral breast Diagnostic mammogram with true lateral, appropriate spot compr ession views and an ultrasound if needed. BI-RADS Category 0: Incomplete: Needs additional imaging evaluation.
--- OUTSIDE RECORDS SUMMARY | 2024-12-22 10:30 | XMS_ITS | Clinical Summary ---
Author Organization [facility] Address [address] [place] [address] Phone Care Team Providers Care Range Ecologist Name Role Phone Miscellaneous, Not In File [...] Health Maintenance Due Date Last Done Comments Colon Cancer Screening-Colonoscopy 1960 Depression Screening 1960 [...] Procedure Name Priority Date/Time Associated Diagnosis Comments DIGITAL MAMMOGRAPHY Routine 08/05/2012 3 :02 PM CDT from Last 3 Months or Most Recently Relevant to Health Maintenance Results * DIGITAL MAMMOGRAPHY (08/05/2012 3:02 PM CDT) Anatomical Region Laterality Modality Breast Mammography 08/05/2012 3:02 PM CDT Narrative 08/05/2012 7:49 PM CDT Acc#: [id number] TAMAR [id number] - Screening Mamm BI DATE [...] BENIGN. TECHNOLOGIST: FERNANDO HALLMAN TECHNOLOGIST MEDICAL IMAGING HEAD OF CONSERVATION: LB3 TRANSCRIBE DATE/TIME: Aug 05 2012 7:31P RADIOLOGIST: SANTOS ELAM M.D. READ ON: Aug 05 2012 5:11P ORDERING DR: RENAN GREENBERG M.D. THIS DOCUMENT HAS BEEN ELECTRONICALLY SIGNED BY: SANTOS ELAM M.D. ON: Aug 05 2012 7:49P HEAD OF CONSERVATION: LB3 TRANSCRIBE DATE/TIME: Aug 05 2012 7:31P RADIOLOGIST: SANTOS ELAM M.D. READ ON: Aug 05 2012 5:11P ORDERING DR: RENAN GREENBERG M.D. THIS DOCUMENT HAS BEEN ELECTRONICALLY SIGNED BY: SANTOS ELAM M.D. ON: Aug 05 2012 7:49P Procedure Note Provider, MD Janett - 06/08/2016 Acc#: [id number] TAMAR [id number] - Screening Mamm BI DATE [...] BENIGN. TECHNOLOGIST: FERNANDO HALLMAN TECHNOLOGIST MEDICAL IMAGING HEAD OF CONSERVATION: LB3 TRANSCRIBE DATE/TIME: Aug 05 2012 7:31P RADIOLOGIST: SANTOS EALM M.D. READ ON: Aug 05 2012 5:11P ORDERING DR: RENAN GREENBERG M.D. THIS DOCUMENT HAS BEEN ELECTRONICALLY SIGNED BY: SANTOS ELAM M.D. ON: Aug 05 2012 7:49P HEAD OF CONSERVATION: LB3 TRANSCRIBE DATE/TIME: Aug 05 2012 7:31P RADIOLOGIST: SANTOS ELAM M.D. READ ON: Aug 05 2012 5:11P ORDERING DR: RENAN GREENBERG M.D. THIS DOCUMENT HAS BEEN ELECTRONICALLY SIGNED BY: SANTOS ELAM M.D. ON: Aug 05 2012 7:49P Historical Provider MD CHIN MAMMO PROCEDURES Kristine l Result from Last 3 Months or Most Recently Relevant to Health Maintenance Insurance MEDICARE [facility] MEDICARE [facility] [place] [address] Care Teams Range Ecologist Relationship Specialty Start Date End Date Miscellaneous, Not In File PCP - General 06/14/23
--- OUTSIDE RECORDS SUMMARY | 2024-12-22 10:30 | XMS_ITS | Clinical Summary ---
Author Organization [facility] Address [address] [place] [address] Care Team Providers Care Personal Banking Representative Name Role Phone Serena Caceres MD Primary Care Provider [phone] Source Comments [facility],non-owned Affiliates and Associated Physician Practices is amultiple site organization consisting of ambulatory clinics and hospital sitesin [place], [place], [place] and [place]. This disclosure is being madepursuant to the Care Everywhere program and may not contain all information available regarding this patient. 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 [facility] utilizes [employer] as a reminder system to notify patients [...] Serena Caceres MD MAMMO ORDERABLES Final Result from Last 3 Months or Most Recently Relevant to Health Maintenance Insurance [facility] Care Teams Personal Banking Representative Relationship Specialty Start Date End Date Serena Caceres MD [address] [place] [address] PCP - General Family Medicine 11/08/17
== END 2024-12-22 09:26 | disposition home or self-care (01) ==
LOC: ANHFOHIMG 09:26
PROVIDERS: PCP Family Medicine; Visit Provider Family Medicine
DX: Z12.31 Encounter for screening mammogram for malignant neoplasm of breast (principal); R92.8 Other abnormal and inconclusive findings on diagnostic imaging of breast
CPT/HCPCS: 77063; 77067